=== PATIENT | female | born 1935 | race Caucasian/White ===

== ENCOUNTER 2018-04-28 05:14 | Observation (INO) | payer MEDICARE, OTHER ==
[2018-04-18 12:14] LABS: BASOPHILS # (AUTO) 0.1 (0.0-0.1); BASOPHILS % 0.8 % (0.0-1.0); EOSINOPHILS # (AUTO) 0.2 (0.0-0.4); HEMATOCRIT 41.4 % (34.2-44.1); HEMOGLOBIN 13.7 g/dL (12.0-16.0); MEAN CORPUSCULAR HEMOGLOBIN 27.7 pg (28-32); MEAN CORPUSCULAR HGB CONC 33.1 g/dL (31-35); MEAN CORPUSCULAR VOLUME 83.8 fL (81-99); MONOCYTES # (AUTO) 0.6 (0.2-0.8); MONOCYTES % 6.1 % (4.4-11.3); NEUTROPHILS # (AUTO) 6.3 (2.1-6.9); NEUTROPHILS % 68.7 % (38.7-80.0); PLATELET COUNT 242 x10e3/uL (140-360); RED BLOOD COUNT 4.94 x10e6/uL (3.6-5.1); RED CELL DISTRIBUTION WIDTH 13.3 % (11.7-14.4)
[2018-04-18 12:27] LABS: ANION GAP 14.3 mmol/L (8-16); BLOOD UREA NITROGEN 26 mg/dL (7-26); BUN/CREATININE RATIO 33 (6-25); CALCIUM 10.1 mg/dL (8.4-10.2); CARBON DIOXIDE 25 mmol/L (22-29); CHLORIDE 104 mmol/L (98-107); CREATININE, SERUM 0.78 mg/dL (0.57-1.11); EST GLOMERULAR FILTRATION RATE > 60 ML/MIN (60-); GLUCOSE 119 mg/dL (74-118); POTASSIUM 4.3 mmol/L (3.5-5.1); SODIUM 139 mmol/L (136-145)
--- NOTE | 2018-04-18 12:36 | Diagnostic Imaging Report ---
PROCEDURE: X-RAY CHEST, TWO VIEWS COMPARISON: None. INDICATIONS: PRE OPERATIVE CHEST X-RAY FOR LEFT BREAST MASTECTOMY FINDINGS: The lungs are hyperinflated. The patient is rotated to the right. No focal airspace consolidation, pleural effusion, or pneumothorax. Tortuosity and atherosclerotic calcification of the thoracic aorta with an otherwise normal heart size. No pulmonary edema. No acute osseous abnormalities. 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 Surgical clips project over the upper abdomen on the lateral radiograph, likely related to cholecystectomy. CONCLUSION: No acute cardiopulmonary abnormality. Pulmonary hyperinflation suggestive of COPD. Dictated by: Robert Olmedo M.D. on 04/18/2018 at 12:40 Electronically approved by: Robert Olmedo M.D. on 04/18/2018 at 12:40
[~2018-04-28] VITALS: Ht 172.7 cm; Wt 72.6 kg
[~2018-04-28 05:14] MED LIST: AMLODIPINE BESYL5 MG PO; ATENOLOL50 MG PO; BERBERINE PO; DORZOLAMIDE-TIM10 ML OP; MULTIVITAMINS1 EAC7 PO; ULTRAM50 MG PO; [UNRECOGNIZED DRUG - OTHER] PO
[2018-04-28] MEDS ORDERED: HYDROMORPHONE 1MG/1ML INJ IV PRN (10:00)
[2018-04-28] MEDS ORDERED: ACETAMINOPHEN 1000 MG/100 ML IV PRN (10:00)
[2018-04-28] MEDS ORDERED: SODIUM CHLORIDE 0.9% 1000ML 1,000 ML ONE (11:16)
[2018-04-28 11:36] VITALS: BP 160/76
[2018-04-28] MEDS: SODIUM CHLORIDE 0.9% 1000ML 1,000 ML IV SCH (11:52)
[2018-04-28 12:05] VITALS: BP 160/76
--- NOTE | 2018-04-28 12:44 | Operative Report ---
DATE OF PROCEDURE: April 28, 2018 PREOPERATIVE DIAGNOSIS: Left breast cancer. POSTOPERATIVE DIAGNOSIS: Left breast cancer. OPERATION PERFORMED: Left total mastectomy. WORSHIP DIRECTOR: JOSH Braga ANESTHESIA: General. COMPLICATIONS: None. ESTIMATED BLOOD LOSS: Minimal. DESCRIPTION OF PROCEDURE: With the patient lying in bed in the supine position, under good general anesthesia, the left chest and breast were prepped with Betadine solution and draped in the usual manner. An elliptical incision was made to include the nipple-areolar complex. Then flaps were developed in all directions. The borders of the flap were medially the sternum, superiorly the clavicle, inferiorly the rectus muscle and laterally the latissimus. The breast tissue was then taken off of the pectoralis major muscle, and hemostasis was ascertained. The lateral border of the pectoralis major was then , and the breast was totally taken off the chest wall without any difficulty, properly marked and sent for pathology. The whole area was thoroughly irrigated. Perfect hemostasis was ascertained. The 10 flat Kerwin-White drain was then placed into the wound and brought out through separate stab wound incision and sutured to the skin with 2-0 silk. The wound was then closed with interrupted vertical mattress sutures of 2-0 and 3-0 silk. A dressing was applied. The sponge, lap and needle count was correct. Patient tolerated the procedure well and returned to the recovery room in stable condition. Job#: [id number]
[2018-04-28 15:49] VITALS: BP 135/66
[2018-04-28] MEDS: HYDROCODONE/APAP 7.5MG-325MG 1 EA TAB PO PRN ×2 (15:52→22:31)
[2018-04-28] MEDS ORDERED: DEXAMETHASONE SOD PHOS INJ 4 MG/ML VIAL ONE (17:18)
[2018-04-28] MEDS ORDERED: ONDANSETRON HCL INJ 2 MG/ML VIAL ONE (17:18)
[2018-04-28] MEDS ORDERED: PROPOFOL IV EMULSION 10 MG/ML 20 ML VIAL ONE (17:18)
[2018-04-28] MEDS ORDERED: LIDOCAINE HCL 2% LOCAL INJ 5 ML SDV VIAL INJ ONE (17:18)
[2018-04-28] MEDS ORDERED: SEVOFLURANE INHAL SOLN 250 ML PEN BTL ONE (17:18)
[2018-04-28] MEDS: DORZOLAMIDE/TIMOLOL (OPTH SOL) 10 ML DRPETTE OP SCH (17:49)
[2018-04-28] MEDS ORDERED: FENTANYL CITRATE/PF 100MCG/2 ML INJ ONE (18:01)
[2018-04-28 20:00] VITALS: BP 138/64
[2018-04-29] VITALS: BP 130/59
[2018-04-29] MEDS: SODIUM CHLORIDE 0.9% 1000ML 1,000 ML IV SCH ×2 (00:54→12:22)
[2018-04-29 04:00] VITALS: BP 152/70
[2018-04-29 08:34] VITALS: BP 137/68
[2018-04-29] MEDS ORDERED: AMLODIPINE BESYLATE 5 MG TAB PO SCH (09:00)
[2018-04-29] MEDS: DORZOLAMIDE/TIMOLOL (OPTH SOL) 10 ML DRPETTE OP SCH (09:00)
[2018-04-29] MEDS ORDERED: ATENOLOL 50 MG TAB PO SCH (09:00)
[2018-04-29 12:25] VITALS: BP 129/65
== END 2018-04-29 16:02 | disposition home or self-care (01) ==
LOC: OR 05:14 → PACU V 10:00 → IMCU 11:27
PROVIDERS: ADMIT Surgery; ATTEND Surgery
DX: D05.12 Intraductal carcinoma in situ of left breast (principal); I10 Essential (primary) hypertension; G89.29 Other chronic pain; E11.9 Type 2 diabetes mellitus without complications
CPT/HCPCS: 19303; 36415; 71046; 80048; 85025; 88307; 93005; G0378 ×2; J1100; J2001; J2405; J7030 ×2; 88309

== ENCOUNTER 2020-03-21 01:50 | Emergency (ER) | payer MEDICARE, OTHER ==
[~2020-03-21] VITALS: Ht 172.7 cm; Wt 72.6 kg
[~2020-03-21 01:50] MED LIST changes: +LIPITOR10 MG PO; +NIFEDIPINE ER30 M1 PO
[2020-03-21] MEDS ORDERED: SODIUM CHLORIDE 0.9% 1000ML 1,000 ML IV STA (01:52)
--- OUTSIDE RECORDS SUMMARY | 2020-03-21 01:53 | XMS REPORT | Continuity of Care Document ---
Author Author Miguelito Vinh wali ANTELMO Alan [employer] Address Unknown Phone Unavailable Care Team Providers Care Stable Hand Name Role Phone [employer] Unavailable Un available Problems Problem Status Onset Date Classification Date Reported Comments Source Laceration without foreign body of other part of head, subsequent encounter 09/06/2018 03/21/2019 [facility] Pain in right wrist 09/01/2018 03/21/2019 [facility] Pain in unspecified wrist 09/01/2018 03/21/2019 [facility] Encounter for removal of sutures 09/01/2018 03/21/2019 [facility] Pain in right hand 09/01/2018 03/21/2019 [facility] STITCH REMOVAL Active 09/01/2018 [facility] FALL Active 08/25/2018 [facility] Laceration without foreign body of scalp , initial encounter 08/25/2018 03/14/2019 [facility] Unspecified fall, initial encounter 08/25/2018 03/14/2019 [facility] Laceration without foreign body of other part of head, initial encounter 08/25/2018 03/14/2019 [facility] DEFICIENCY, VITAMIN D NOS Acti ve 03/29/2015 Condition 04/[facility] HTN, BENIGN Active 03/29/2015 Condition 04/18/2015 [facility] Benign hypertension (disorder) Active 03/29/2015 Problem 03/21/2019 Data migrated from [employer] on . [facility] Vitamin D deficiency (disorder) Active 03/29/2015 Problem 03/21/2019 Data migrated from [employer] on . [facility] THYROID CYST Active 03/29/2015 [facility] ACUTE MAXILLARY SINUSITIS Acti ve 05/31/2010 Condition 04/18/2015 [facility] Cough (finding) Active 05/31/2010 Problem 03/21/2019 Data migrated from [employer] on . Data migrated from [employer] on 04/27/15. Data migrated from [employer] on 03/22/15. Data migrated from [employer] on 03/22/15. [facility] Acute maxillary sinusitis (disorder) Active 05/31/2010 Problem 03/21/2019 Data migrated from [employer] on . [facility] INCONTINENCE, URGE Active 05/15/2010 Condition 04/18/2015 [facility] NEED PROPH VACCINATION AGAINST STREP PNEUMONE Active 05/15/2010 Condition 04/18/2015 [facility] Urge incontinence of urine (finding) Active 05/15/2010 Problem 03/21/2019 Data migrated from [employer] on . Data migrated from [employer] on 03/22/15. Data migrated from [employer] on 03/22/15. [facility] PNEUMONIA Active 01/20/2010 Condition 04/18/2015 [facility] Pneumonia (disorder) Active 01/20/2010 Problem 03/21/2019 Data migrated from [employer] on . [facility] OTHER SCREENING MAMMOGRAM Acti ve 01/16/2010 Condition 04/18/2015 [facility] SPECIAL SCREENING FOR MALIGNANT NEOPLASMS COLON Active 01/16/2010 Condition 04/18/2015 [facility] MYALGIA Active 01/16/2010 Condition 04/18/2015 [facility] FEVER PRESENTING CONDITIONS CLASSIFIED ELSEWHERE Active 01/16/2010 Condition 04/18/2015 [facility] COUGH Active 01/16/2010 Condition 04/18/2015 [facility] BACK PAIN Active 01/16/2010 Condition 04/18/2015 [facility] Fever (finding) Active 01/16/2010 Problem 03/21/2019 Data migrated from [employer] on . Data migrated from [employer] on 03/22/15. [facility] Muscle pain (finding) Active 01/16/2010 Problem 03/21/2019 Data migrated from [employer] on . Data migrated from [employer] on 03/22/15. Data migrated from [employer] on 03/22/15. [facility] Backache (finding) Active 01/16/2010 Problem 03/21/2019 Data migrated from [employer] on . [facility] Screening mammography (procedure) Active 01/16/2010 Problem 03/21/2019 Data migrated from [employer] on . [facility] THYROID CYST Active 03/30/2009 Condition 04/18/2015 [facility] Cyst of thyroid (disorder) Act elizabeth 03/30/2009 Problem 03/21/2019 Data migrated from [employer] on . Data migrated from [employer] on 03/22/15. Data migrated from [employer] on 03/22/15. [facility] ABDOMINAL PAIN Inactive 11/10/2008 Condition 04/18/2015 [facility] URI Inactive 11/10/2008 Condition 04/18/2015 [facility] SINUSITIS, ACUTE Inactive 11/10/2008 Condition 04/18/2015 [facility] PHARYNGITIS Inactive 11/10/2008 Condition 04/18/2015 [facility] LARYNGITIS ACUTE Inactive 11/10/2008 Condition 04/18/2015 [facility] GLAUCOMA Active 11/10/2008 Condition 04/18/2015 [facility] ALLERGIC RHINITIS Active 11/10/2008 Condition 04/18/2015 [facility] IMPAIRED FASTING GLUCOSE Active 11/10/2008 Condition 04/18/2015 [facility] CAD Active 0 11/10/2008 Condition 04/18/2015 [facility] KNEE PAIN Active 11/10/2008 Condition 04/18/2015 [facility] Allergic rhinitis (disorder) A ctive 11/10/2008 Problem 03/21/2019 Data migrated from [employer] on . Data migrated from [employer] on 03/22/15. Data migrated from [employer] on 03/22/15. [facility] Coronary arteriosclerosis (disorder) Active 11/10/2008 Problem 03/21/2019 Data migrated from [employer] on . Data migrated from [employer] on 03/22/15. Data migrated from [employer] on 03/22/15. [facility] Glaucoma (disorder) Active 11/10/2008 Problem 03/21/2019 Data migrated from [employer] on . Data migrated from [employer] on 03/22/15. Data migrated from [employer] on 03/22/15. [facility] Impaired fasting glycaemia (disorder) Active 11/10/2008 Problem 03/21/2019 Data migrated from [employer] on . Data migrated from [employer] on 03/22/15. Data migrated from [employer] on 03/22/15. [facility] Knee pain (finding) Active 11/10/2008 Problem 03/21/2019 Data migrated from [employer] on . Data migrated from [employer] on 03/22/15. Data migrated from [employer] on 03/22/15. [facility] GERD Active 11/09/2008 Condition 04/18/2015 [facility] URINARY INCONTINENCE Active 11/09/2008 Condition 04/18/2015 [facility] BRONCHITIS Active 11/09/2008 Condition 04/18/2015 [facility] Gastroesophageal reflux disease (disorder) Active 11/09/2008 Problem 03/21/2019 Data migrated from [employer] on 04/27/15. Data migrated from [employer] on 03/22/15. Data migrated from [employer] on 03/22/15. [facility] Urinary incontinence (finding) Active 11/09/2008 Problem 03/21/2019 Data migrated from [employer] on . Data migrated from [employer] on 03/22/15. Data migrated from [employer] on 03/22/15. [facility] Acute laryngitis (disorder) Re solved 11/09/2008 Problem 03/21/2019 Data migrated from [employer] on 05/07. [facility] Acute sinusitis (disorder) Res olved 11/09/2008 Problem 03/21/2019 Data migrated from [employer] on 05/06. [facility] Bronchitis (disorder) Active 11/09/2008 Problem 03/21/2019 Data migrated from [employer] on . [facility] Pharyngitis (disorder) Resolved 11/09/2008 Problem 03/21/2019 Data migrated from [employer] on 05/06. [facility] Upper respiratory infection (disorder) Resolved 11/09/2008 Problem 03/21/2019 Data migrated from [employer] on 05/06/15. [facility] FH DIABETES - DM Active Condition 04/18/2015 [facility] FH STROKE Active Condition 04/18/2015 [facility] FH HEART DISEASE Active Condition 04/18/2015 [facility] Unspecified fall, subsequent encounter 03/21/2019 [facility] Other specified soft tissue disorders 03/21/2019 [facility] Essential (primary) hypertension 03/21/2019 [facility] Atherosclerotic heart disease of [place] coronary artery without angina pectoris 03/21/2019 [facility] Family history of stroke (context-dependent category) Active Problem 03/21/2019 Data migrated from [employer] on 04/27/15. [facility] Family history: Cardiac disorder (contex t-dependent category) Active Prob lacey 03/21/2019 Data migrated from [employer] on 04/27/15. [facility] Fall (on) (from) other stairs and steps, initial encounter 03/14/2019 [facility] Malignant neoplasm of unspecified site o f unspecified female breast 03/14/2019 [facility] Allergy status to other drugs, medicamen ts and biological substances status 03/14/2019 [facility] Allergy status to other antibiotic agents status 03/14/2019 [facility] Allergy status to analgesic agent status 03/14/2019 [facility] Encounter for immunization 03/14/2019 [facility] OCL CRTD ART WO INFRCT Active [facility] Medications Medication Details Route Status Patient Instructions Ordering Provider Order Date Source Sulfamethoxazole 800 MG / Trimethoprim 1 60 MG Oral Tablet [Bactrim] 1 tab, PO, BID, X 7 day, # 14 tab, 0 Ref ill(s) No Longer Active 08/26/2018 [facility] COSOPT PF SOLN one drop in eac h eye twice daily Active 03/29/2015 [facility] TRAMADOL HCL 50 MG TABS one to two tab s by mouth twice daily Active 03/29/2015 [facility] TRAMADOL HCL 50 MG TABS one to two tab s by mouth twice daily Active 03/29/2015 [facility] AVELOX 400 MG TABS one daily f or sinus infection No Longer Active 05/31/2010 [facility] PROMETHAZINE-DM 6.25-15 MG/5ML SYRP one teaspoon every 4-6 hours and 2 teaspoons HS for cough/ congestion No Longer Active 05/31/2010 [facility] SINGULAIR 10 MG TABS daily No Longer Active 05/31/2010 [facility] CLARINEX 5 MG TABS daliy No Longer Active 05/31/2010 [facility] PROMETHAZINE-DM 6.25-15 MG/5ML SYRP 2 teaspoons HS prn cough Inactive 05/15/2010 [facility] BACTRIM DS 800-160 MG TABS one BID x 7 days (to begin Saturday01/23/2010) Inactive 05/15/2010 [facility] LEVAQUIN 750 MG TABS 1 po janeen y x 7 days. Inactive 05/15/2010 [facility] ASTEPRO 137 MCG/SPRAY SOLN 2 s pn BID Inactive 05/15/2010 [facility] TRAVATAN SOLN 1 drop each eye daily (per Manager Technical Support) No Longer Active 11/10/2008 [facility] ATENOLOL TAB 25MG 1/2 tab by m outh daily Active 11/09/2008 [facility] ATENOLOL TAB 25MG 1/2 tab by m outh daily Active 11/09/2008 [facility] Allergies, Adverse Reactions, Alerts Substance Category Reaction Severity Reaction type Status Date Reported Comments Source BIAXIN Drug allergy BIAXIN 11/09/2008 [facility] clarithromycin<sup>1</sup> Ass ertion Drug aller gy Active 11/09/2008 1Data migrated from [employer] on 02/15/15. Originally documented as BIAXIN. [facility] clarithromycin<sup>2</sup> Ass ertion Drug aller gy Active 11/09/2008 Data migrated from [employer] on 02/15/15. Originally documented as BIAXIN. [facility] BROMDAY Drug allergy BROMDAY 03/29/2015 [facility] IBUPROFEN Drug allergy IBUPROFEN 03/29/2015 [facility] EPHEDRINE Drug allergy EPHEDRINE 03/29/2015 [facility] ibuprofen<sup>1</sup> Assertion Drug allergy Active 03/29/2015 Data migrated from [employer] on04/28/15. Originally documented as IBUPROFEN. [facility] ePHEDrine<sup>3</sup> Assertion Drug allergy Active 03/29/2015 Data migrated from [employer] on04/28/15. Originally documented as EPHEDRINE. [facility] Biaxin Assertion Drug allergy Active [facility] decongestants Assertion Drug allergy Active [facility] Immunizations Immunization Date Given Site Status Last Updated Comments Source diphtheria/pertussis, acel/tetanus adult 08/25/2018 Left Deltoid completed [facility] pneumococcal immunization administered 05/15/2010 completed [facility] pneumococcal 23-valent vaccine<sup>1</sup> 05/15/2010 Right Deltoid completed Result Comment: pneumovax. Migrated from OBS ; Data migrated from [employer] on 11/28/2015. [facility] Results Order Name Results Value Reference Range Date Interpretation Comments Source CARDIAC ENZYMES Troponin-I <0.02 0.00 - 0.40 08/25/2018 [facility] CARDIAC ENZYMES Total CK 114 12 - 191 08/25/2018 [facility] CHEM PANEL A/G Ratio 1.1 0.7 - 1.6 08/25/2018 [facility] CHEM PANEL Globulin 3.0 2.7 - 4.2 08/25/2018 [facility] CHEM PANEL B/C Ratio 29 6 - 25 08/25/2018 [facility] CHEM PANEL AGAP 10.6 10.0 - 20.0 08/25/2018 [facility] CHEM PANEL eGFR 56 08/25/2018 Result Comment: The eGFR is calculated using the CKD-EPI formula. In most young, healthy individuals the eGFR will be >90 mL/min/1.73m2. The eGFR declines with age. An eGFR of 60-89 may be normal in some populations, particularly the elderly, for whom the CKD-EPI formula has not been extensively validated. Use of the eGFR is not recommended in the following populations:

Individuals with unstable creatinine concentrations, including patients and those with serious co-morbid conditions.

Patients with extremes in muscle mass or diet.

The data above are obtained from the National Kidney Disease Education Program (NKDEP) which additionally recommends that when the eGFR is used in patients with extremes of body mass index for purposes of drug dosing, the eGFR should be multiplied by the estimated BMI. [facility] CHEM PANEL Bili Total 0.3 0.2 - 1.3 08/25/2018 [facility] CHEM PANEL Alk Phos 81 39 - 136 08/25/2018 [facility] CHEM PANEL AST 17 0 - 37 08/25/2018 [facility] CHEM PANEL Sodium Lvl 141 135 - 145 08/25/2018 [facility] CHEM PANEL Creatinine Lvl 0.96 0.50 - 1.40 08/25/2018 [facility] CHEM PANEL Potassium Lvl 3.6 3.5 - 5.1 08/25/2018 [facility] CHEM PANEL Glucose Lvl 165 70 - 99 08/25/2018 [facility] CHEM PANEL Calcium Lvl 8.9 8.5 - 10.5 08/25/2018 [facility] CHEM PANEL Chloride Lvl 106 95 - 109 08/25/2018 [facility] CHEM PANEL CO2 28 24 - 32 08/25/2018 [facility] CHEM PANEL Albumin Lvl 3.3 3.5 - 5.0 08/25/2018 [facility] CHEM PANEL ALT 27 0 - 65 08/25/2018 [facility] CHEM PANEL Total Protein 6.3 6.4 - 8.4 08/25/2018 [facility] CHEM PANEL BUN 28 7 - 22 08/25/2018 [facility] HEMATOLOGY PTT 30.8 22.9 - 35.8 08/25/2018 [facility] HEMATOLOGY RDW 14.2 11.5 - 14.5 08/25/2018 [facility] HEMATOLOGY MCHC 33.7 32.0 - 36.0 08/25/2018 [facility] HEMATOLOGY MPV 8.9 7.4 - 10.4 08/25/2018 [facility] HEMATOLOGY Platelet 198 133 - 450 08/25/2018 [facility] HEMATOLOGY MCH 27.5 27.0 - 31.0 08/25/2018 [facility] HEMATOLOGY MCV 81.4 80.0 - 98.0 08/25/2018 [facility] HEMATOLOGY Hct 39.3 36.0 - 48.0 08/25/2018 [facility] HEMATOLOGY Hgb 13.2 12.0 - 16.0 08/25/2018 [facility] HEMATOLOGY RBC 4.82 4.20 - 5.40 08/25/2018 [facility] HEMATOLOGY WBC 9.5 3.7 - 10.4 08/25/2018 [facility] HEMATOLOGY PT 14.0 12.0 - 14.7 08/25/2018 [facility] HEMATOLOGY INR 1.08 0.85 - 1.17 08/25/2018 [facility] HEMATOLOGY Neutrophils # 7.4 1.5 - 8.1 08/25/2018 [facility] HEMATOLOGY Lymphocytes # 1.3 1.0 - 5.5 08/25/2018 [facility] HEMATOLOGY Monocytes # 0.6 0.0 - 0.8 08/25/2018 [facility] HEMATOLOGY Eosinophils # 0.1 0.0 - 0.5 08/25/2018 [facility] HEMATOLOGY Basophils # 0.1 0.0 - 0.2 08/25/2018 [facility] HEMATOLOGY Basophils 0.8 0.0 - 1.0 08/25/2018 [facility] HEMATOLOGY Monocytes 6.3 2.0 - 12.0 08/25/2018 [facility] HEMATOLOGY Lymphocytes 14.2 20.0 - 40.0 08/25/2018 [facility] HEMATOLOGY Segs 77.8 45.0 - 75.0 08/25/2018 [facility] HEMATOLOGY Eosinophils 1.0 0.0 - 4.0 08/25/2018 [facility] Chemistry HGBA1C 6.4 - 5.6 03/30/2015 [facility] Chemistry CHOLESTEROL 181 - 199 03/30/2015 [facility] Chemistry TRIGLYCERIDE 103 - 149 03/30/2015 [facility] Chemistry HDL 52 >=61 03/30/2015 [facility] Chemistry LDL 108 - 99 03/30/2015 [facility] Chemistry SODIUM 144 MEQ/L 135 - 145 03/30/2015 [facility] Chemistry POTASSIUM 4.3 MEQ/L 3.5 - 5.1 03/30/2015 [facility] Chemistry CREATININE 0.8 0.5 - 1.4 03/30/2015 [facility] Chemistry BUN 22 7 - 22 03/30/2015 [facility] Chemistry BUN/CREAT 28 6 - 25 03/30/2015 [facility] Chemistry ALBUMIN 3.5 3.5 - 5.0 03/30/2015 [facility] Chemistry CALCIUM 9.4 8.5 - 10.5 03/30/2015 [facility] Chemistry SGPT (ALT) 27 0 - 65 03/30/2015 [facility] Chemistry SGOT (AST) 13 0 - 37 03/30/2015 [facility] Chemistry ALK PHOS 91 39 - 136 03/30/2015 [facility] Chemistry TSH 1.970 0.360 - 3.740 03/30/2015 [facility] Chemistry HGBA1C 5.7 05/15/2010 [facility] CHOLESTEROL 210 120 - 200 05/15/2010 [facility] Chemistry TRIGLYCERIDE 96 0 - 200 05/15/2010 [facility] Chemistry HDL 50 >=35 05/15/2010 [facility] Chemistry LDL 181 0 - 129 05/15/2010 [facility] Chemistry TSH 1.970 0.360 - 3.740 05/15/2010 [facility] Chemistry SODIUM 140 135 - 145 05/15/2010 [facility] Chemistry POTASSIUM 5.4 3.5 - 5.1 05/15/2010 [facility] Chemistry BUN 25 7 - 22 05/15/2010 [facility] Chemistry CREATININE 0.9 0.5 - 1.4 05/15/2010 [facility] Chemistry BUN/CREAT 28 6 - 25 05/15/2010 [facility] Chemistry ALBUMIN 3.7 3.5 - 5.0 05/15/2010 [facility] Chemistry CALCIUM 9.8 8.5 - 10.5 05/15/2010 [facility] Chemistry SGOT (AST) 10 0 - 37 05/15/2010 [facility] Chemistry SGPT (ALT) 28 0 - 65 05/15/2010 [facility] Chemistry ALK PHOS 99 39 - 136 05/15/2010 [facility] Chemistry HGBA1C 5.7 05/15/2010 [facility] Chemistry CHOLESTEROL 210 120 - 200 05/15/2010 [facility] Chemistry TRIGLYCERIDE 96 0 - 200 05/15/2010 [facility] Chemistry HDL 50 >=35 05/15/2010 [facility] Chemistry LDL 141 0 - 129 05/15/2010 [facility] Chemistry TSH 1.970 0.360 - 3.740 05/15/2010 [facility] Chemistry SODIUM 140 135 - 145 05/15/2010 [facility] Chemistry POTASSIUM 5.4 3.5 - 5.1 05/15/2010 [facility] Chemistry BUN 25 7 - 22 05/15/2010 [facility] Chemistry CREATININE 0.9 0.5 - 1.4 05/15/2010 [facility] Chemistry BUN/CREAT 28 6 - 25 05/15/2010 [facility] Chemistry ALBUMIN 3.7 3.5 - 5.0 05/15/2010 [facility] Chemistry CALCIUM 9.8 8.5 - 10.5 05/15/2010 [facility] Chemistry SGOT (AST) 10 0 - 37 05/15/2010 [facility] Chemistry SGPT (ALT) 28 0 - 65 05/15/2010 [facility] Chemistry ALK PHOS 99 39 - 136 05/15/2010 [facility] Hematology HGB 14.1 12.0 - 16.0 05/15/2010 [facility] Hematology HCT 42.3 36.0 - 48.0 05/15/2010 [facility] Hematology PLATELETS 189 K/CMM 133 - 450 05/15/2010 [facility] Hematology HGB 14.1 12.0 - 16.0 05/15/2010 [facility] Hematology HCT 42.3 36.0 - 48.0 05/15/2010 [facility] Hematology PLATELETS 189 K/CMM 133 - 450 05/15/2010 [facility] Urinalysis UA COLOR Yellow Yellow 05/15/2010 [facility] Urinalysis UA COLOR Yellow Yellow 05/15/2010 [facility] Chemistry HGBA1C 5.8 % OF TOTAL HGB 11/13/2008 [facility] Chemistry BUN 19 7 - 25 11/11/2008 [facility] Chemistry CREATININE 0.79 0.50 - 1.20 11/11/2008 [facility] Chemistry BUN/CREAT NOT AP PLICABLE (calc) 6 - 22 11/11/2008 [facility] Chemistry SODIUM 141 135 - 146 11/11/2008 [facility] Chemistry POTASSIUM 4.4 3.5 - 5.3 11/11/2008 [facility] Chemistry CALCIUM 9.8 8.6 - 10.2 11/11/2008 [facility] Chemistry ALBUMIN 4.2 3.6 - 5.1 11/11/2008 [facility] Chemistry ALK PHOS 72 33 - 130 11/11/2008 [facility] Chemistry SGOT (AST) 17 10 - 35 11/11/2008 [facility] Chemistry SGPT (ALT) 21 6 - 40 11/11/2008 [facility] Pathology Reports No Data Provided for This Section Diagnostic Reports Report Value Date Source Wrist complete DX Wrist comple te DX Clinical Indication: - pain and swelling post fall 7d ago; ; Age: 82 years /o Female Comparison: None TECHNIQUE: PA, lateral and oblique radiographs of the right wrist. FINDINGS: No displaced fracture identified. Advanced osteoarthropathy of the articulation of the scaphoid with the adjacent trapezium and trapezoid bones. Some fragmentation of bone in the region of the triangular fibrocartilage is unassociated with any acute injury and may be related to degenerative change or prior trauma. There is also some widening of the scapholunate space which measures approximately 3 mm in width. This finding is suspicious for injury of the scapholunate ligament. No soft tissue abnormality is identified. IMPRESSION: No displaced fracture identified. Possible scapholunate ligament injury. Degenerative osteoarthropathy is noted. 09/01/2018 [facility] Hand 3 views DX Right Hand 3 v iews DX Age: 82 years /o Female Clinical Indication: - pain and swelling post fall 7d ago; Comparison: None TECHNIQUE: PA, lateral and oblique radiographs for right hand exam. (3 views) FINDINGS: No acute fracture or malalignment is identified. Moderately advanced osteoarthropathy involving the MCP joints--most severe at the second MCP joint followed by a third in the first CMC joint. Milder osteoarthropathy of the interphalangeal joints of all fingers. Calcifications associated with the triangular fibrocartilage. Advanced osteoarthropathy at the articulation of the trapezium and trapezoid bones with the distal scaphoid. No soft tissue abnormality is identified. IMPRESSION: Arthritic changes in the hand including the MCP joints, the first CMC joint and the articulations of the scaphoid bone with the adjacent trapezium and trapezoid as described. SL: [id number] 09/01/2018 [facility] Shoulder series DX 3 VIEW RIGH T SHOULDER HISTORY: And shoulder pain after falling. COMPARISON: No priors available. Moderate arthritic change at the glenohumeral joint and significant narrowing of the subacromial space. Arthritic changes in the acromioclavicular joint. The bony structures are intact without fracture or dislocation. Upper right lung clear. IMPRESSION: Arthritic changes glenohumeral joint and acromioclavicular joint. Subacromial space narrowing raises concern for impingement. END REPORT SL: [id number] 08/25/2018 [facility] Chest 1view DX CHEST 1 VIEW INDICATION: Patient fell. COMPARISON: 01/26/2010 chest x-ray. FINDINGS: The lungs are clear. The pleura, cardiomediastinal silhouette and bony thorax are normal. IMPRESSION: Negative. END IMPRESSION SL: [id number] 08/25/2018 [facility] Brain wo contrast CT Clinical Indication: - fall Comparison: None TECHNIQUE: CT images were obtained from the foramen magnum to the vertex without the use of intravenous contrast on a multidetector CT. Coronal and sagittal reconstructions were obtained. CT imaging performed at this location utilizes radiation dose optimization techniques which include one or more of the following: -Automated exposure control -Adjustment of the mA and/or kV accordin g to patient size -Use of iterative reconstruction [employer]ight [employer] ue CT Radiation Dose DLP 937 mGy-cm FINDINGS: BRAIN PARENCHYMA: There are normal garcia-white interfaces, sulci, and gyri. There are no focal mass lesions on this noncontrast head CT. There is no mass effect, midline shift or edema. There are no intra-axial or extra-axial fluid collections, intraventricular or intraparenchymal hemorrhage. The pineal, sellar, brainstem, cerebellum and skull base regions appear unremarkable. VENTRICLES: The lateral ventricles, third and fourth ventricles appear unremarkable for age. The basilar cisterns are normal. ORBITS, MASTOIDS AND PARANASAL SINUSES: Status post bilateral lens replacement. The visualized orbits and paranasal sinuses are unremarkable. The mastoid air cells are clear. SKULL: There are no osseous abnormalities. If there is further concern for intracranial pathology or acute stroke, MRI of the brain may be performed for complete assessment. IMPRESSION: No acute intracranial abnormalities. ----- SL: CSMMICHELLEM 08/25/2018 [facility] Spine cervical wo contrast CT Patient Name: ANTELMO PAGAN. : 1935; Age: 82 years y/o; Female. MR: [id number]. Ordering Physician: Jonathan Michelle MD. CT CERVICAL SPINE WITHOUT CONTRAST. HISTORY: Fall and neck pain. COMPARISON: None. FINDINGS: Computed tomography of the cervical spine was performed utilizing contiguous transaxial sections without the administration of intravenous or myelographic contrast. Coronal and sagittal reformatted images were obtained. CT imaging was performed with exposure control parameters to reduce radiation dose. Total DLP: 158 mGy-cm The cervicovertebral bodies are normal in height without evidence of fracture. Degenerative grade 1 anterolisthesis noted at C2-3. Partially imaged levoscoliosis of cervicothoracic spine noted. Diffuse degenerative changes of cervical spine noted causing varying degrees of multilevel central canal and neural foraminal stenosis. The prevertebral soft tissue is unremarkable. Partially imaged lung apices are unremarkable. IMPRESSION: 1. No evidence of cervical spine fractur e. 2. Degenerative grade 1 anterolisthesis at C2-3. Partially imaged levoscoliosis of cervicothoracic spine. Diffuse degenerative changes noted. SL: [id number] 08/25/2018 [facility] Thyroid US Thyroid US - Mar 31, 2015 10:48:00 AM . CLINICAL INDICATION: See Clinic Indication ; thyroid cyst COMPARISON: Thyroid ultrasound March 2009 TECHNIQUE: Grayscale and Doppler ultrasound of the neck was obtained in the area of the thyroid. FINDINGS: Right lobe is 4.8 x 1.6 x 2.2 cm. Left lobe is 4.5 x 1.7 x 1.5 cm. Isthmus is 0.3 cm. Few scattered heterogeneously hypoechoic nodules are present throughout thyroid gland, with largest the right measuring 0.9 cm on the largest left measuring 0.8 cm. No lymphadenopathy was identified IMPRESSION: Few scattered bilateral heterogeneously hypoechoic subcentimeter nodules. Reference: Radiology. 2005 237:794-800. Management of thyroid nodules detected at US: Society of Radiologists in Ultrasound Consensus Conference Statement. Lui MC, Neeraj CB, Keaton JW, et. al. SL: 14 03/31/2015 [facility] Consultation Notes No Data Provided for This Section Discharge Summaries No Data Provided for This Section History and Physicals No Data Provided for This Section Vital Signs Vital Sign Value Date Comments Source Temperature Oral (F) 98.5 F 09/01/2018 [facility] Heart Rate 68 09/01/2018 [facility] Respitory Rate 18 09/01/2018 [facility] Systolic (mm Hg) 139 09/01/2018 [facility] Diastolic (mm Hg) 74 09/01/2018 [facility] Heart Rate 68 09/01/2018 [facility] Systolic (mm Hg) 125 09/01/2018 [facility] Diastolic (mm Hg) 77 09/01/2018 [facility] Respitory Rate 18 09/01/2018 [facility] Height 172.72 cm 09/01/2018 [facility] BMI Calculated 24.38 09/01/2018 [facility] Weight 72.727 09/01/2018 [facility] Respitory Rate 18 09/01/2018 [facility] Temperature Oral (F) 98.7 F 09/01/2018 [facility] Systolic (mm Hg) 171 09/01/2018 [facility] Diastolic (mm Hg) 83 09/01/2018 [facility] Heart Rate 71 09/01/2018 [facility] Heart Rate 87 08/26/2018 [facility] Respitory Rate 18 08/26/2018 [facility] Systolic (mm Hg) 153 08/26/2018 [facility] Diastolic (mm Hg) 75 08/26/2018 [facility] Respitory Rate 18 08/25/2018 [facility] Heart Rate 89 08/25/2018 [facility] Systolic (mm Hg) 166 08/25/2018 [facility] Diastolic (mm Hg) 75 08/25/2018 [facility] Heart Rate 87 08/25/2018 [facility] Respitory Rate 18 08/25/2018 [facility] Systolic (mm Hg) 150 08/25/2018 [facility] Diastolic (mm Hg) 75 08/25/2018 [facility] Temperature Oral (F) 98.4 F 08/25/2018 [facility] Weight 72.727 08/25/2018 [facility] Height 175.26 cm 08/25/2018 [facility] BMI Calculated 23.68 08/25/2018 [facility] Height 68 0 04/18/2015 [facility] Weight 192 04/18/[facility] Systolic (mm Hg) 164 04/18/2015 [facility] Diastolic (mm Hg) 78 04/18/2015 [facility] Heart Rate 64 04/18/2015 [facility] Temperature Oral (F) 97.4 F 04/18/2015 [facility] Height 68 0 03/29/2015 [facility] Weight 196 03/29/2015 [facility] Temperature Oral (F) 97.2 F 03/29/2015 [facility] Systolic (mm Hg) 166 03/29/2015 [facility] Diastolic (mm Hg) 77 03/29/2015 [facility] Heart Rate 73 03/29/2015 [facility] Height 68 0 05/31/2010 [facility] Weight 186 05/31/2010 [facility] Temperature Oral (F) 97.0 F 05/31/2010 [facility] Heart Rate 63 05/31/2010 [facility] Systolic (mm Hg) 110 05/31/2010 [facility] Diastolic (mm Hg) 55 05/31/2010 [facility] Height 68 0 05/15/2010 [facility] Weight 183 05/15/2010 [facility] Heart Rate 56 05/15/2010 [facility] Systolic (mm Hg) 130 05/15/2010 [facility] Diastolic (mm Hg) 65 05/15/2010 [facility] Weight 185 01/20/2010 [facility] Temperature Oral (F) 98.3 F 01/20/2010 [facility] Heart Rate 73 01/20/2010 [facility] Systolic (mm Hg) 133 01/20/2010 [facility] Diastolic (mm Hg) 68 01/20/2010 [facility] Height 68 0 01/20/2010 [facility] Height 68 0 01/16/2010 [facility] Weight 184 01/16/2010 [facility] Systolic (mm Hg) 108 01/16/2010 [facility] Diastolic (mm Hg) 60 01/16/2010 [facility] Temperature Oral (F) 97.9 F 01/16/2010 [facility] Heart Rate 82 01/16/2010 [facility] Height 68 0 03/30/2009 [facility] Weight 182 03/30/2009 [facility] Systolic (mm Hg) 110 03/30/2009 [facility] Diastolic (mm Hg) 70 03/30/2009 [facility] Weight 177 11/10/2008 [facility] Height 68 0 11/10/2008 [facility] Systolic (mm Hg) 120 11/10/2008 [facility] Diastolic (mm Hg) 61 11/10/2008 [facility] Encounters Location Location Details Encounter Type Encounter Number Reason For Visit Attending Provider ADM Date DC Date Status Source [facility] Office Visit [id number] Bert Cain MD 03/29/2015 03/29/[address] [facility] Lab Report [id number] Bert Cain MD 03/30/2015 03/30/2015 [facility] Outpatient [id number] Bert Cain 03/31/2015 04/01/2015 [facility] Office Visit [id number] Bert Cain MD 04/18/2015 04/18/2015 [facility] Emergency [id number] Jonathan Iheme 08/25/2018 08/26/2018 [facility] ([facility]) Emergency [id number] Savita Alcanter 09/01/2018 09/01/2018 [facility] Procedures Procedure Code Date Perfomer Comments Source mammogram 03324 11/28/1989 Completed [facility] Gallbladder operation [id number] [facility] Knee replacement [id number] [facility] Mastectomy [id number] [facility] st Tonsillectomy and adenoidectomy [id number] [facility] Assessment and Plan No Data Provided for This Section Plan of Care No Data Provided for This Section Social History Social History Date Source Social History TypeResponse Smoking Status Never smoker; Type: Cigarettes; Previous treatment: None; Ready to change: No; Concerns about tobacco use in household: No; Exposure to Tobacco Smoke None; Cigarette Smoking Last 365 Days No; Reg Smoking Cessation Counseling No entered on: 09/01/18 09/01/2018 [facility] Family History No Data Provided for This Section Advance Directives No Data Provided for This Section Functional Status No Data Provided for This Section
--- OUTSIDE RECORDS SUMMARY | 2020-03-21 01:54 | XMS REPORT ---
Author Author [facility] t Organization [facility] Address [address] [place] [address] Phone Unavailable Care Team Providers Care Vibration Engineer Name Role Phone MD KEHINDE GRIMES MD PCP CHRISTIANO CUI Attphys Unavailable Magdiel Hughes Attphys Shelby Michelle Attphys Isreal CONN Attphys Unavailable Bert Cain Attphys CHRISTIANO CUI Admphys Unavailable Payers Payer Name Policy Type Policy Number Effective Date Expiration Date Liudmila spear Medicare A & B NA 2002 00:00:00 C [facility] [employer] Hmo NA 1992 00:00:00 [facility] Problems Condition Name Condition Details Condition Category Status Onset Date Resolution Date Last Treatment Date Treating Clinician Comments Source STITCH REMOVAL STIT CH REMOVAL Active 09/01/2018 [facility] Diagnosis Active 2018-09-01 00:00:00 2018-09-02 18:42:00 [facility] FALL FALL Active 08/25/2018 [facility] Diagnosis Active 2018-08-25 13:30:00 2018-08-30 11:27:00 [facility] DEFICIENCY, VITAMIN D NOS DEFI CIENCY, VITAMIN D NOS Active 03/29/2015 Condition 04/18/2015 [facility] Condition Active 2015-03-29 00:00:00 2015-04-18 07:50:51 [facility] HTN, BENIGN HTN, BENIGN Active 03/29/2015 Condition 04/18/2015 [facility] Condition Active 2015-03-29 00:00:00 2015-03 07:50:51 [facility] Benign hypertension (disorder) Benign hypertension (disorder) Active 03/29/2015 Problem 03/21/2019 Data migrated from [employer] on 04/27/15. [facility] Problem Active 2015-03-29 00:00:00 2019-03-21 11:36:19 [facility] Vitamin D deficiency (disorder) Vitamin D deficiency (disorder) Active 03/29/2015 Problem 03/21/2019 Data migrated from [employer] on 04/27/15. [facility] Problem Active 2015-03-29 00:00:00 2019-03-21 11:36:19 [facility] THYROID CYST THYR OID CYST Active 03/29/2015 [facility] Diagnosis Active 2015-03-29 00:00:00 2015-03-31 10:43:00 [facility] ACUTE MAXILLARY SINUSITIS ACUT E MAXILLARY SINUSITIS Active 05/31/2010 Condition 04/18/2015 [facility] Condition Active 2010-05-31 00:00:00 2015-04-18 07:50:51 [facility] Cough (finding) Coug h (finding) Active 05/31/2010 Problem 03/21/2019 Data migrated from [employer] on 04/27/15.Data migrated from [employer] on 04/27/15.Data migrated from [employer] on 03/22/15.Data migrated from [employer] on 03/22/15. [facility] Problem Active 2010-05-31 00: 00:00 2019-03-21 11:36:19 [facility] Acute maxillary sinusitis (disorder) Acute maxillary sinusitis (disorder) Active 05/31/2010 Problem 03/21/2019 Data migrated from [employer] on 04/27/15. [facility] Problem Active 2010-05-31 00:00: 00 2019-03-21 11:36:19 [facility] INCONTINENCE, URGE INCO NTINENCE, URGE Active 05/15/2010 Condition 04/18/2015 [facility] Condition Active 2010-05-15 00:00:00 2015-04-18 07:50:51 [facility] NEED PROPH VACCINATION AGAINST STREP PNEUMONE NEED PROPH VACCINATION AGAINST STREP PNEUMONE Active 05/15/2010 Condition 04/18/2015 [facility] Condition Active 2010-05-15 00:00:00 2015-04-18 07:50:51 [facility] Urge incontinence of urine (finding) Urge incontinence of urine (finding) Active 05/15/2010 Problem 03/21/2019 Data migrated from [employer] on 04/27/15.Data migrated from [employer] on 03/22/15.Data migrated from [employer] on 03/22/15. [facility] Problem Active 2010-05-15 00:00:00 2019-03-21 11:36:19 [facility] PNEUMONIA PNEU MONIA Active 01/20/2010 Condition 04/18/2015 [facility] Condition Active 2010-01-20 00:00:00 2015-04-18 07:50:5 1 [facility] Pneumonia (disorder) Pneu monia (disorder) Active 01/20/2010 Problem 03/21/2019 Data migrated from [employer] on 04/27/15. [facility] Problem Active 2010-01-20 00:00:00 2019-03-21 11:36:19 [facility] OTHER SCREENING MAMMOGRAM OTHE R SCREENING MAMMOGRAM Active 01/16/2010 Condition 04/18/2015 [facility] Condition Active 2010-01-16 00:00:00 2015-04-18 07:50:51 [facility] SPECIAL SCREENING FOR MALIGNANT NEOPLASMS COLON SPECIAL SCREENING FOR MALIGNANT NEOPLASMS COLON Active 01/16/2010 Condition 04/18/2015 [facility] Condition Active 2010-01-16 00:00:00 2015-04-18 07:50:51 [facility] MYALGIA MYAL NERY Active 01/16/2010 Condition 04/18/2015 [facility] Condition Active 2010-01-16 00:00:00 2015-04-18 07:50:51 [facility] FEVER PRESENTING CONDITIONS CLASSIFIED ELSEWHERE FEVER PRESENTING CONDITIONS CLASSIFIED ELSEWHERE Active 01/16/2010 Condition 04/18/2015 [facility] Condition Active 2010-01-16 00:00:00 2015-04-18 07:50:51 [facility] COUGH COUG H Active 01/16/2010 Condition 04/18/2015 [facility] Condition Active 2010-01-16 00:00:00 2015-04-18 07:50:51 [facility] BACK PAIN BACK PAIN Active 01/16/2010 Condition 04/18/2015 [facility] Condition Active 2010-01-16 00:00:00 2015-04-18 07:50:5 1 [facility] Fever (finding) Feve r (finding) Active 01/16/2010 Problem 03/21/2019 Data migrated from [employer] on 03/22/15.Data migrated from [employer] on 03/22/15. [facility] Problem Active 2010-01-16 00:00:00 2019-03-21 11:36:19 [facility] Muscle pain (finding) Musc le pain (finding) Active 01/16/2010 Problem 03/21/2019 Data migrated from [employer] on 04/27/15.Data migrated from [employer] on 03/22/15.Data migrated from [employer] on 03/22/15. [facility] Problem Active 2010-01-16 00:00:00 2019-03-21 11:36:19 [facility] Backache (finding) Back ache (finding) Active 01/16/2010 Problem 03/21/2019 Data migrated from [employer] on 04/27/15. [facility] Problem Active 2010-01-16 00:00:00 2019-03-21 11:36:19 [facility] Screening mammography (procedure) Screening mammography (procedure) Active 01/16/2010 Problem 03/21/2019 Data migrated from [employer] on 04/27/15. [facility] Problem Active 2010-01-16 00:00:00 2019-03-21 11:36:19 [facility] THYROID CYST THYR OID CYST Active 03/30/2009 Condition 04/18/2015 [facility] Condition Active 2009-03-30 00:00:00 2015-04-18 07:50:51 [facility] Cyst of thyroid (disorder) Cys t of thyroid (disorder) Active 03/30/2009 Problem 03/21/2019 Data migrated from [employer] on 04/27/15.Data migrated from [employer] on 03/22/15.Data migrated from [employer] on 03/22/15. [facility] Problem Active 2009-03-30 00:00:00 2019-03-21 11:36:19 [facility] GLAUCOMA GLAU COMA Active 11/10/2008 Condition 04/18/2015 [facility] Condition Active 2008-11-10 00:00:00 2015-04-18 07:50:51 [facility] ALLERGIC RHINITIS DIANE RGIC RHINITIS Active 11/10/2008 Condition 04/18/2015 [facility] Condition Active 2008-11-10 00:00:00 2015-04-18 07:50:51 [facility] IMPAIRED FASTING GLUCOSE IMPA IRED FASTING GLUCOSE Active 11/10/2008 Condition 04/18/2015 [facility] Condition Active 2008-11-10 00:00:00 2015-04-18 07:50:51 [facility] CAD CAD Active 11/10/2008 Condition 04/18/2015 [facility] Condition Active 2008-11-10 00:00:00 2015-04-18 07:50:51 [facility] KNEE PAIN KNEE PAIN Active 11/10/2008 Condition 04/18/2015 [facility] Condition Active 2008-11-10 00:00:00 2015-04-18 07:50:5 1 [facility] Allergic rhinitis (disorder) A llergic rhinitis (disorder) Active 11/10/2008 Problem 03/21/2019 Data migrated from [employer] on 04/27/15.Data migrated from [employer] on 03/22/15.Data migrated from [employer] on 03/22/15. [facility] Problem Active 2008-11-10 00:00:00 2019-03-21 11:36:19 [facility] Coronary arteriosclerosis (disorder) Coronary arteriosclerosis (disorder) Active 11/10/2008 Problem 03/21/2019 Data migrated from [employer] on 04/27/15.Data migrated from [employer] on 03/22/15.Data migrated from [employer] on 03/22/15. [facility] Problem Active 2008-11-10 00:00:00 2019-03-21 11:36:19 [facility] Glaucoma (disorder) Glau coma (disorder) Active 11/10/2008 Problem 03/21/2019 Data migrated from [employer] on 04/27/15.Data migrated from [employer] on 03/22/15.Data migrated from [employer] on 03/22/15. 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 [facility] Problem Active 2008-11-10 00:00:00 2019-03-21 11:36:19 [facility] Knee pain (finding) Knee pain (finding) Active 11/10/2008 Problem 03/21/2019 Data migrated from [employer] on 04/27/15.Data migrated from [employer] on 03/22/15.Data migrated from [employer] on 03/22/15. [facility] Problem Active 2008-11-10 00:00:00 2019-03-21 11:36:19 [facility] GERD GERD Active 11/09/2008 Condition 04/18/2015 [facility] Condition Active 2008-11-09 00:00:00 2015-04-18 07:50:51 [facility] URINARY INCONTINENCE URIN CLAY INCONTINENCE Active 11/09/2008 Condition 04/18/2015 [facility] Condition Active 2008-11-09 00:00:00 2015-04-18 07:50:51 [facility] BRONCHITIS BRON CHITIS Active 11/09/2008 Condition 04/18/2015 [facility] Condition Active 2008-11-09 00:00:00 2015-04-18 0 7:50:51 [facility] Gastroesophageal reflux disease (disorder) Gastroesophageal reflux disease (disorder) Active 11/09/2008 Problem 03/21/2019 Data migrated from [employer] on 04/27/15.Data migrated from [employer] on 03/22/15.Data migrated from [employer] on 03/22/15. [facility] Problem Active 2008-11-09 00:00:00 2019-03-21 11:36:19 [facility] Urinary incontinence (finding) Urinary incontinence (finding) Active 11/09/2008 Problem 03/21/2019 Data migrated from [employer] on 04/27/15.Data migrated from [employer] on 03/22/15.Data migrated from [employer] on 03/22/15. [facility] Problem Active 2008-11-09 00:00:00 2019-03-21 11:36:19 [facility] Bronchitis (disorder) Bron chitis (disorder) Active 11/09/2008 Problem 03/21/2019 Data migrated from [employer] on 04/27/15. [facility] Problem Active 2008-11-09 00:00:00 2019-03-21 11:36:19 [facility] Palpitations Problem Active [facility] DIABETES - DM FH D IABETES - DM Active Condition 04/18/2015 [facility] Condition Active 2015-04-18 07:50:51 [facility] FH STROKE FH S TROKE Active Condition 04/18/2015 [facility] Condition Active 2015-04-18 07:50:51 [facility] FH HEART DISEASE FH H EART DISEASE Active Condition 04/18/2015 [facility] Condition Active 2015-04-18 07:50:51 [facility] Unspecified fall, subsequent encounter Unspecified fall, subsequent encounter 03/21/2019 [facility] Problem 2019-03-21 11:36:19 [facility] Other specified soft tissue disorders Other specified soft tissue disorders 03/21/2019 [facility] Problem 2019-03-21 11:36:19 [facility] Essential (primary) hypertension Essential (primary) hypertension 03/21/2019 [facility] Problem 2019-03-21 11:36:19 [facility] Atherosclerotic heart disease of jena coronary arter y without angina pectoris Atherosclerotic heart disease of jena coronary artery without angina pectoris 03/21/2019 [facility] Problem 2019-03-21 11:36:19 [facility] Family history of stroke (context-dependent category) Family history of stroke (context-dependent category) Active Problem 03/21/2019 Data migrated from [employer] on 04/27/15. [facility] Problem Active 2019-03-21 11:36:19 [facility] Family history: Cardiac disorder (context-dependent ca tegory) Family history: Cardiac disorder (context-dependent category) Active Problem 03/21/2019 Data migrated from [employer] on 04/27/15. [facility] Problem Active 2019-03-21 11:36:19 [place] Fall (on) (from) other stairs and steps, initial encou nter Fall (on) (from) other stairs and steps, initial encounter 03/14/2019 [facility] Problem 2019-03-14 12:15:57 [facility] Malignant neoplasm of unspecified site of unspecified female breast Malignant neoplasm of unspecified site of unspecified female breast 03/14/2019 [facility] Problem 2019-03-14 12:15:5 7 [facility] Allergy status to other drugs, medicaments and biologi ricardo substances status Allergy status to other drugs, medicaments and biological substances status 03/14/2019 [facility] Problem 03-14 12:15:57 [facility] Allergy status to other antibiotic agents status Allergy status to other antibiotic agents status 03/14/2019 [facility] Problem 2019-03-14 12:15:57 [facility] Allergy status to analgesic agent status Allergy status to analgesic agent status 03/14/2019 [facility] Problem 2019-03-14 12:15:57 [facility] Encounter for immunization Enc ounter for immunization 03/14/2019 [facility] Problem 2019-03-14 12:15:5 7 [facility] OCL CRTD ART WO INFRCT OCL CRTD ART WO INFRCT Active [facility] Diagnosis Active 2015-03-31 10:43:00 [facility] Laceration without foreign body of other part of head, subsequent encounter Laceration without foreign body of other part of head, subsequent encounter 09/06/2018 03/21/2019 [facility] Problem 2018-09-06 04:36:09 2019-03-21 11:36:19 2019-03-21 11:36:19 [facility] Pain in right wrist Pain in right wrist 09/01/2018 03/21/2019 [facility] Problem 2018-09-01 06:00:00 2019-03-21 11:36: 19 2019-03-21 11:36:19 [facility] Pain in unspecified wrist Pain in unspecified wrist 09/01/2018 03/21/2019 [facility] Problem 2018-09-01 06:00:00 2018 11:36:19 2019-03-21 11:36:19 [facility] Encounter for removal of sutures Encounter for removal of sutures 09/01/2018 03/21/2019 [facility] Problem 201 05-31-12 06:00:00 2019-03-21 11:36:19 2019-03-21 11:36:19 [facility] Pain in right hand Pain in right hand 09/01/2018 03/21/2019 [facility] Problem 2018-09-01 06:00:00 2019-03-21 11:36:19 2019-03-21 11:36:19 [facility] Laceration without foreign body of scalp, initial enco unter Laceration without foreign body of scalp, initial encounter 08/25/2018 03/14/2019 [facility] Problem 2018-08-25 06:00:00 2019-03-14 12:15:5 7 2019-03-14 12:15:57 [facility] Unspecified fall, initial encounter Unspecified fall, initial encounter 08/25/2018 03/14/2019 [facility] Problem 2018-08-25 06:00:00 2019-03-14 12:15:57 2019-03-14 12:15:57 [facility] Laceration without foreign body of other part of head, initial encounter Laceration without foreign body of other part of head, initial encounter 08/25/2018 03/14/2019 [facility] Problem 2017 06:00:00 2019-03-14 12:15:57 2019-03-14 12:15:57 [facility] Allergies, Adverse Reactions, Alerts Allergy Name Allergy Type Status Severity Reaction(s) Onset Date Inacti ve Date Treating Clinician Comments Source ibuprofen<sup>1</sup> ibuprofen<sup>1</sup> Active 2014 05:00:00 [facility] ePHEDrine<sup>3</sup> ePHEDrine<sup>3</sup> Active 2014 05:00:00 [facility] BROMDAY BROMDAY Active 2015-03-29 00:00:00 [facility] IBUPROFEN IBUPROFEN Active 2015-03-29 00:00:00 [facility] EPHEDRINE EPHEDRINE Active 2015-03-29 00:00:00 [facility] BIAXIN BIAXIN Active 2008-11-09 00:00:00 [facility] Biaxin Biaxin Active [facility] decongestants decongestants Active [facility] Social History Social Habit Start Date Stop Date Quantity Comments Source Sex Ass[birth year] At 1935 00:00:00 1935 00:00:00 Female [facility] Smoking Status Start Date Stop Date Source Social History [facility] Medications Ordered Medication Name Filled Medication Name Start Date Stop Da te Current Medication? Ordering Clinician Indication Dosage Frequency Signature (SIG) Comments Components Source Atorvastatin Calcium (Lipitor*) 10 Mg TABLET Atorvasta tin Calcium (Lipitor*) 10 Mg TABLET 2020-03-15 12:20:00 Yes 10 Bedtime [facility] Nifedipine (Nifedipine Er) 30 Mg TAB.ER.24 Nifedipine (Nifedipine Er) 30 Mg TAB.ER.24 2020-03-15 12:16:00 Yes 30 Every 12 Hours [facility] Sulfamethoxazole 800 MG / Trimethoprim 160 MG Oral Tablet [B actrim] 2018-08-26 00:09:00 No 1 tab, PO, BID, X 7 day, # 1 4 tab, 0 Refill(s) [facility] COSOPT PF SOLN 2015-03-29 00:00:00 Yes one drop in each eye twice daily [facility] TRAMADOL HCL 50 MG TABS 2015-03-29 00:00:00 Yes one to two tab s by mouth twice daily [facility] TRAMADOL HCL 50 MG TABS 2015-03-29 00:00:00 Yes one to two tab s by mouth twice daily [facility] AVELOX 400 MG TABS 2010-05-31 00:00:00 No one daily for sinus infection [facility] PROMETHAZINE-DM 6.25-15 MG/5ML SYRP 2010-05-31 00:00:00 No one teaspoon every 4-6 hours and 2 teaspoons HS for cough/ congestion [facility] SINGULAIR 10 MG TABS 2010-05-31 00:00:00 No daily [facility] CLARINEX 5 MG TABS 2010-05-31 00:00:00 No d aliy [facility] PROMETHAZINE-DM 6.25-15 MG/5ML SYRP 2010-05-15 00:00:00 No 2 teaspoons HS prn cough [facility] BACTRIM DS 800-160 MG TABS 2010-05-15 00:00:00 No one BID x 7 days (to begin Saturday01/23/2010) Medical oup LEVAQUIN 750 MG TABS 2010-05-15 00:00:00 No 1 po daily x 7 days. [facility] ASTEPRO 137 MCG/SPRAY SOLN 2010-05-15 00:00:00 No 2 spn BID [facility] TRAVATAN SOLN 2008-11-10 00:00:00 No 1 drop each eye daily (per Sludge Control Operator) [facility] ATENOLOL TAB 25MG 2008-11-09 00:00:00 Yes 1/2 tab by mouth daily [facility] ATENOLOL TAB 25MG 2008-11-09 00:00:00 Yes 1/2 tab by mouth daily [facility] Amlodipine Besylate Amlodipine Besylate Yes 5 Daily [facility] Atenolol Atenolol Yes 25 Daily [facility] Berberine Berberine Yes 1 Daily [facility] Dorzolamide Hcl/Timolol Maleat (Dorzolamide-Timolol Ey e Drops) 10 Ml DROPS Dorzolamide Hcl/Timolol Maleat (Dorzolamide-Timolol Eye Drops) 10 Ml DROPS Yes 10 Twice A Day [facility] Multivitamin (Multivitamins) 1 Each CAPSULE Multivitam in (Multivitamins) 1 Each CAPSULE Yes 1 Twice A Day [facility] Natakinase Natakinase Yes 1 Daily [facility] Tramadol Hcl (Ultram) 50 Mg TABLET Tramadol Hcl (Ultram) 50 Mg TABLET Yes 50 Twice A Day as needed for Pain [facility] Amlodipine Besylate Amlodipine Besylate 2020-03-15 00:00:00 No 5 Daily [facility] Vital Signs Vital Name Observation Time Observation Value Comments Source Body Temperature 2020-03-15 11:45:00 97.7 [degF] [facility] BMI (Body Mass Index) 2020-03-13 20:00:00 24.3 kg/m2 [facility] Weight 2020-03-13 16:06:00 160 [lb_av] [facility] Temperature Oral (F) 2018-09-01 18:00:00 98.5 F [facility] Heart Rate 2018-09-01 18:00:00 [facility] Respitory Rate 2018-09-01 18:00:00 [facility] Systolic (mm Hg) 2018-09-01 18:00:00 [facility] Diastolic (mm Hg) 2018-09-01 18:00:00 [facility] Heart Rate 2018-09-01 17:21:00 [facility] Systolic (mm Hg) 2018-09-01 17:21:00 [facility] Diastolic (mm Hg) 2018-09-01 17:21:00 [facility] Respitory Rate 2018-09-01 17:21:00 [facility] Height 2018-09-01 16:49:00 172.72 cm [facility] BMI Calculated 2018-09-01 16:49:00 [facility] Weight 2018-09-01 16:49:00 [facility] Respitory Rate 2018-09-01 16:49:00 [facility] Temperature Oral (F) 2018-09-01 16:49:00 98.7 F [facility] Systolic (mm Hg) 2018-09-01 16:49:00 [facility] Diastolic (mm Hg) 2018-09-01 16:49:00 [facility] Heart Rate 2018-09-01 16:49:00 [facility] Heart Rate 2018-08-26 00:00:00 [facility] Respitory Rate 2018-08-26 00:00:00 [facility] Systolic (mm Hg) 2018-08-26 00:00:00 [facility] Diastolic (mm Hg) 2018-08-26 00:00:00 [facility] Respitory Rate 2018-08-25 22:00:00 [facility] Heart Rate 2018-08-25 22:00:00 [facility] Systolic (mm Hg) 2018-08-25 22:00:00 [facility] Diastolic (mm Hg) 2018-08-25 22:00:00 [facility] Heart Rate 2018-08-25 21:34:00 [facility] Respitory Rate 2018-08-25 21:34:00 [facility] Systolic (mm Hg) 2018-08-25 21:34:00 [facility] Diastolic (mm Hg) 2018-08-25 21:34:00 [facility] Temperature Oral (F) 2018-08-25 21:04:00 98.4 F [facility] Weight 2018-08-25 21:04:00 [facility] Height 2018-08-25 21:04:00 175.26 cm [facility] BMI Calculated 2018-08-25 21:04:00 [facility] Height 2015-04-18 12:50:51 [facility] Weight 2015-04-18 12:50:51 [facility] Systolic (mm Hg) 2015-04-18 12:50:51 [facility] Diastolic (mm Hg) 2015-04-18 12:50:51 [facility] Heart Rate 2015-04-18 12:50:51 [facility] Temperature Oral (F) 2015-04-18 12:50:51 97.4 F [facility] Height 2015-03-29 18:06:01 [facility] Weight 2015-03-29 18:06:01 [facility] Temperature Oral (F) 2015-03-29 18:06:01 97.2 F [facility] Systolic (mm Hg) 2015-03-29 18:06:01 [facility] Diastolic (mm Hg) 2015-03-29 18:06:01 [facility] Heart Rate 2015-03-29 18:06:01 [facility] Height 2010-05-31 14:24:21 [facility] Weight 2010-05-31 14:24:21 [facility] Temperature Oral (F) 2010-05-31 14:24:21 97.0 F [facility] Heart Rate 2010-05-31 14:24:21 [facility] Systolic (mm Hg) 2010-05-31 14:24:21 [facility] Diastolic (mm Hg) 2010-05-31 14:24:21 [facility] Height 2010-05-15 12:17:20 [facility] Weight 2010-05-15 12:17:20 [facility] Heart Rate 2010-05-15 12:17:20 [facility] Systolic (mm Hg) 2010-05-15 12:17:20 M ed[facility] Group Diastolic (mm Hg) 2010-05-15 12:17:20 [facility] Weight 2010-01-20 13:56:00 [facility] Temperature Oral (F) 2010-01-20 13:56:00 98.3 F [facility] Heart Rate 2010-01-20 13:56:00 [facility] Systolic (mm Hg) 2010-01-20 13:56:00 M edical Group Diastolic (mm Hg) 2010-01-20 13:56:00 [facility] Height 2010-01-20 13:56:00 [facility] Height 2010-01-16 14:27:30 [facility] Weight 2010-01-16 14:27:30 [facility] Systolic (mm Hg) 2010-01-16 14:27:30 [facility] Diastolic (mm Hg) 2010-01-16 14:27:30 [facility] Group Temperature Oral (F) 2010-01-16 14:27:30 97.9 F [facility] Heart Rate 2010-01-16 14:27:30 [facility] Height 2009-03-30 14:29:10 [facility] Weight 2009-03-30 14:29:10 [facility] al Group Systolic (mm Hg) 2009-03-30 14:29:10 M edical Group Diastolic (mm Hg) 2009-03-30 14:29:10 [facility] Weight 2008-11-10 14:36:30 [facility] al Group Height 2008-11-10 14:36:30 [facility] Systolic (mm Hg) 2008-11-10 14:36:30 M edical Group Diastolic (mm Hg) 2008-11-10 14:36:30 [facility] Procedures Procedure Date / Time Performed Performing Clinician [facility] mammogram 1989-11-28 06:00:00 [facility] Gallbladder operation [facility] Knee replacement [facility] Mastectomy [facility] Tonsillectomy and adenoidectomy [facility] Plan of Care Planned Activity Planned Date Details Comments Source Instructions Hypertension [facility] Encounters Start Date/Time End Date/Time Encounter Type Admission Type [facility] Care Department Encounter ID Source 2018-09-01 16:44:00 2018-09-01 18:10:00 [facility] [id number] 2018-09-01 10:44:00 2018-09-01 12:10:00 Outpatient Savita Jimenez [facility] [id number] 2018-08-25 21:02:00 2018-08-26 00:15:00 [facility] [id number] [facility] 2018-08-25 15:02:00 2018-08-25 18:15:00 Outpatient Jonathan Michelle [facility] [id number] 2018-04-28 10:00:00 2018-04-29 16:02:00 Discharged Inpatient (obs) 3 JIM CONN [facility] [id number] [facility] 2015-04-18 00:00:00 2015-04-18 00:00:00 Office Visit FILI [facility] [id number] [facility] 2015-03-31 15:38:00 2015-04-01 04:59:00 Outpatient [facility] [id number] [facility] 2015-03-31 10:38:00 2015-03-31 23:59:00 Outpatient Ant Larry mayi [facility] [id number] 2015-03-30 00:00:00 2015-03-30 00:00:00 Lab Report [facility] [id number] [facility] 2015-03-29 00:00:00 2015-03-29 00:00:00 Office Visit [facility] [id number] [facility] Results Test Description Test Time Test Comments Results Result Comments Source Blood leukocytes automated count (number/volume) 2020-03-15 05:35:00 Test Item White Blood Count (test code = 6690-2) 8.15 4.8-10.8 [facility] erythrocytes automated count (number/volume)2020-03-15 05:35:00* Test Item Value Reference Range Interpretation Comments Red Blood Count (test code = 789-8) 4.65 3.6-5.1 [facility] hemoglobin measurement (moles/volume)2020-03-15 05:35:00* Test Item Value Reference Range Interpretation Comments Hemoglobin (test code = 87975-1) 13.2 12.0-16.0 [facility]ervilleAutomated blood hematocrit (volume fraction)2020-03-15 05:35:00* Test Item Value Reference Range Interpretation Comments Hematocrit (test code = 4544-3) 39.6 34.2-44.1 [facility]ervilleAutomated erythrocyte mean corpuscular vfclkj6797-87-20 05:35:00* Test Item Value Reference Range Interpretation Comments Mean Corpuscular Volume (test code = 787-2) 85.2 81-99 VERIFIED PREVIOUS RESULTSB[facility] & [facility]ugervilleAutomated erythrocyte mean corpuscular hemoglobin (mass per erythrocyte)2020-03-15 05:35:00* Test Item Value Reference Range Interpretation Comments Mean Corpuscular Hemoglobin (test code = 785-6) 28.4 28-32 [facility]ervilleAutomated erythrocyte mean corpuscular hemoglobin concentration measurement (mass/volume)2020-03-15 05:35:00* Test Item Value Reference Range Interpretation Comments Mean Corpuscular Hemoglobin Concent (test code = 786-4) 33.3 31-35 [facility] PflugervilleRDW ZtjAy-Sca9449-14-26 05:35:00* Test Item Value Reference Range Interpretation Comments Red Cell Distribution Width (test code = 34475-8) 14.3 11.7 -14.4 [facility]ervilleAutomated blood platelet count (count/volume)2020-03-15 05:35:00* Test Item Value Reference Range Interpretation Comments Platelet Count (test code = 777-3) 179 140-360 [facility]ervilleAutformerly [facility]ard[facility] careed blood segmented neutrophil count as percentage of total kpodpxpopx2162-23-62 05:35:00* Test Item Value Reference Range Interpretation Comments Neutrophils (%) (Auto) (test code = 73649-0) 61.4 38.7-80.0 [facility]ugervilleAutomated blood lymphocyte count as percentage ot total aepjxekhpg4448-50-08 05:35:00* Test Item Value Reference Range Interpretation Comments Lymphocytes (%) (Auto) (test code = 736-9) 26.5 18.0-39.1 [facility]ugervilleAutomated blood monocyte count as percentage of total lwoyiyallj8924-49-42 05:35:00* Test Item Value Reference Range Interpretation Comments Monocytes (%) (Auto) (test code = 5905-5) 7.9 4.4-11.3 [facility]ugervilleAutomated blood eosinophil count as percentage of total larhjlpgjf3436-14-76 05:35:00* Test Item Value Reference Range Interpretation Comments Eosinophils (%) (Auto) (test code = 713-8) 2.9 0.0-6.0 [facility]ugervilleAutomated blood basophil count as percentage of total udgtguoskb1244-71-75 05:35:00* Test Item Value Reference Range Interpretation Comments Basophils (%) (Auto) (test code = 706-2) 0.9 0.0-1.0 [facility] PflugervilleFluoroscopic procedure less than one hour ciimnoro8068-92-17 05:35:00* Test Item Value Reference Range Interpretation Comments IM GRANULOCYTES % (test code = IM GRANULOCYTES %) 0.4 0.0- 1.0 [facility] PflugervilleAutomated blood neutrophil count 2020-03-15 05:35:00* Test Item Value Reference Range Interpretation Comments Neutrophils # (Auto) (test code = 751-8) 5.0 2.1-6.9 [facility]ervilleBlood lymphocytes count (number/volume) 2020-03-15 05:35:00* Test Item Value Reference Range Interpretation Comments Lymphocytes # (Auto) (test code = 20329-0) 2.2 1.0-3.2 [facility] monocytes automated count (number/volume)2020-03-15 05:35:00* Test Item Value Reference Range Interpretation Comments Monocytes # (Auto) (test code = 742-7) 0.6 0.2-0.8 [facility]ervilleAutomated blood eosinophil count 2020-03-15 05:35:00* Test Item Value Reference Range Interpretation Comments Eosinophils # (Auto) (test code = 711-2) 0.2 0.0-0.4 [facility]ervilleAutomated blood basophil count (count/volume)2020-03-15 05:35:00* Test Item Value Reference Range Interpretation Comments Basophils # (Auto) (test code = 704-7) 0.1 0.0-0.1 [facility]ervilleFluoroscopic procedure less than one hour cpybjtxu7397-22-99 05:35:00* Test Item Value Reference Range Interpretation Comments Absolute Immature Granulocyte (auto (ame t code = Absolute Immature Granulocyte (auto) 0.03 0-0.1 [facility] sodium measurement (moles/volume)2020-03-15 05:35:00* Test Item Value Reference Range Interpretation Comments Sodium Level (test code = 2951-2) 140 136-145 [facility] Hospitaler[facility] or plasma potassium measurement (moles/volume)2020-03-15 05:35:00* Test Item Value Reference Range Interpretation Comments Potassium Level (test code = 2823-3) 3.5 3.5-5.1 [facility]er[facility] or plasma chloride measurement (moles/volume)2020-03-15 05:35:00* Test Item Value Reference Range Interpretation Comments Chloride Level (test code = 2075-0) 110 98-107 [facility]er[facility] or plasma carbon dioxide, total measurement (moles/volume)2020-03-15 05:35:00* Test Item Value Reference Range Interpretation Comments Carbon Dioxide Level (test code = 2028-9) 23 22-29 [facility]er[facility] or plasma anion lco2836-27-24 05:35:00* Test Item Value Reference Range Interpretation Comments Anion Gap (test code = 57926-1) 10.5 8-16 [facility]er[facility] plasma urea nitrogen measurement (mass/volume)2020-03-15 05:35:00* Test Item Value Reference Range Interpretation Comments Blood Urea Nitrogen (test code = 3094-0) 23 7-26 [facility]er[facility] or plasma creatinine measurement (mass/volume)2020-03-15 05:35:00* Test Item Value Reference Range Interpretation Comments Creatinine (test code = 2160-0) 0.80 0.57-1.11 [facility] Hospitalerum or plasma urea nitrogen/creatinine mass bpeow0355-55-66 05:35:00* Test Item Value Reference Range Interpretation Comments BUN/Creatinine Ratio (test code = 3097-3) 29 6-25 [facility]ervilleEstimated glomerular filtration rate (GFR) mtycgvijgskjf1577-74-57 05:35:00* Test Item Value Reference Range Interpretation Comments Estimat Glomerular Filtration Rate (test code = 086610898) > 60 >60 Ranges were taken from the National Kidney Disease Education Program and the [facility] Kid[facility] Foundation literature.Reference ranges:60 or greater: Pawvds71-61 ( for 3 consecutive months): Chronic kidney disease 15 or less: Kidney failureBaylor Scott & White Medical Center – PflugervilleGlucose uysenqjxtpp6853-48-52 05:35:00* Test Item Value Reference Range Interpretation Comments Glucose Level (test code = NRY6270) 126 74-118 [facility]er[facility] or plasma calcium measurement (mass/volume)2020-03-15 05:35:00* Test Item Value Reference Range Interpretation Comments Calcium Level (test code = 39389-8) 9.1 8.4-10.2 [facility]ervillePhosphorus uyemliwkahh5708-61-29 05:35:00 * Test Item Value Reference Range Interpretation Comments Phosphorus Level (test code = YIT6754) 3.8 2.3-4.7 [facility] Hospitalerum or plasma magnesium measurement (mass/volume)2020-03-15 05:35:00* Test Item Value Reference Range Interpretation Comments Magnesium Level (test code = 94837-3) 2.0 1.3-2.1 [facility]ervilleCHEST SINGLE (PORTABLE)2020-03-14 07:53:00 [place] [address] Patient Name: ANTELMO PAGAN MR #: [id number] : 1935 Age/Sex: 84/F Req #: [id number] Adm Physician: CHRISTIANO CUI MD Ordered by: CHRISTIANO CUI MD Report #: [id number] Location: MED/SURG Room/Bed: [facility] Procedure: [id number] DX/CHEST SINGL E (PORTABLE) Exam Date: 03/14/20 Exam Time: 0630 REPORT STATUS: Signed Examination: Single AP view of the chest. COMPARISON: Portable chest 03/13/2020 OSBALDO CATION: Palpitations, shortness of breath IMPRESSION: 1. Lines a nd Tubes: None 2. Hyperinflated lungs. Interval improvement in previously vis ualized prominent perihilar interstitial markings/interstitial opacities, sugg esting improved mild interstitial edema. 3. Cardiomediastinal silhouette is normal. Mild central pulmonary venous congestion, improved since prior exam 4. No acute bony abnormalities. Signed by: Dr. Jose Enrique Fernandez M.D. o n 03/14/2020 7:54 AM Dictated By: JOSE ENRIQUE FERNANDEZ MD 0754 Transcribed By: EJ on 03/14/20 075 4 COPY TO: CHRISTIAON CUI MD Fluoroscopic procedure less than one hour nixibsab2520-83-88 02:53:00* Test Item Value Reference Range Interpretation Comments Hemoglobin A1c Percent (test code = Hemoglobin A1c Percent) 6.2 4.0-7.0 [facility] plasma triglyceride measurement (mass/volume)2020-03-14 02:53:00* Test Item Value Reference Range Interpretation Comments Triglycerides Level (test code = 2571-8) 61 0-149 [facility]er[facility] or plasma cholesterol measurement (mass/volume)2020-03-14 02:53:00* Test Item Value Reference Range Interpretation Comments Cholesterol Level (test code = 2093-3) 172 0-199 Less than 200 mg/dL Low Rrnu230 - 239 mg/dL Borderline Fcsh881 m g/dl and greater High Risk [facility]er[facility] or plasma cholesterol in LDL measurement (mass/volume) 2020-03-14 02:53:00* Test Item Value Reference Range Interpretation Comments LDL Cholesterol (test code = 2089-1) 105 60-130 [facility]er[facility] or plasma cholesterol in HDL measurement (mass/volume)2020-03-14 02:53:00* Test Item Value Reference Range Interpretation Comments HDL Cholesterol (test code = 2085-9) 55 40-60 [facility]er[facility] or plasma total cholesterol/cholesterol in HDL mass tbhbm6968-02-99 02:53:00* Test Item Value Reference Range Interpretation Comments Cholesterol/HDL Ratio (test code = 9830-1) 3.1 3.0-3.6 [facility]erum or plasma creatine kinase measurement (enzymatic activity/volume)2020-03-14 02:53:00* Test Item Value Reference Range Interpretation Comments Creatine Kinase (test code = 2157-6) 65 29-168 [facility]erum or plasma creatine kinase MB measurement (mass/volume)2020-03-14 02:53:00* Test Item Value Reference Range Interpretation Comments Creatine Kinase MB (test code = 56886-7) 1.80 0-4.3 [facility]ervilleTroponin I measurement by highly sensitive enzyme zuurybvkaqe3573-70-68 02:53:00* Test Item Value Reference Range Interpretation Comments Troponin I (test code = 39528-4) 0.021 0-0.300 [facility]ervilleCHEST SINGLE (PORTABLE)2020-03-13 17:24:00 [facility] [address] [place] [address] Patient Name: ANTELMO PAGAN MR #: [id number] : 1935 Age/Sex: 84/F Req #: [id number] Adm Physician: CHRISTIANO CUI MD Ordered by: STEVEN KC DO Report #: [id number] Location: MED/SURG Room/Bed: [facility] Procedure: [id number] DX/CHEST SINGLE (PORTABLE) Exam Date: 03/13/20 Exam Time: 164 0 REPORT STATUS: Signed Examinat ion: Single AP view of the chest. COMPARISON: 2 view chest 04/18/2018 I NDICATION: Very high blood pressure, chest pain IMPRESSION: 1. L harry and Tubes: None 2. Lungs are hyperinflated, which may reflect underlying COPD. Prominence of the perihilar interstitial markings/mild visual opacities , suggesting mild interstitial edema. No consolidation or effusion. 3. Card iomediastinal silhouette is normal. Central pulmonary venous congestion. 4. No acute bony abnormalities. Cystic degenerative changes in the right proxim al humerus. Degenerative changes in bilateral glenohumeral joints, right great er than left. Signed by: Dr. Jose Enrique Fernandez M.D. on 03/13/2020 5:26 PM Dictated By: JOSE ENRIQUE FERNANDEZ MD 25 Transcribed By: EJ on 03/13/201725 COPY TO: STEVEN HOWARD DO Urine color wcvtkobxhgssf6656-69-68 16:20:00* Test Item Value Reference Range Interpretation Comments Urine Color (test code = 5778-6) YELLOW YELLOW [facility]ervilleUrine xhbgjsm9623-45-91 16:20:00* Test Item Value Reference Range Interpretation Comments Urine Clarity (test code = 55953-5) CLEAR CLEAR [facility] Hospitalpecific gravity of Urine by Test strip 2020-03-13 16:20:00* Test Item Value Reference Range Interpretation Comments Urine Specific Weiner (test code = 5811-5) 1.020 1.010-1.02 5 [facility]ervilleUrine pH measurement by automated test glkyy9401-25-92 16:20:00* Test Item Value Reference Range Interpretation Comments Urine pH (test code = 27663-9) 6 5-7 [facility]ervilleUrine leukocyte esterase detection by fqummjps1027-74-12 16:20:00* Test Item Value Reference Range Interpretation Comments Urine Leukocyte Esterase (test code = 5799-2) NEGATIVE NEGATIVE [facility]ervilleUrine nitrite eaxcfyvkk0505-44-17 16:20:00* Test Item Value Reference Range Interpretation Comments Urine Nitrite (test code = 57171-8) NEGATIVE NEGATIVE [facility]ervilleUrine protein measurement by test strip (mass/volume)2020-03-13 16:20:00* Test Item Value Reference Range Interpretation Comments Urine Protein (test code = 5804-0) NEGATIVE NEGATIVE [facility]ervilleUrine glucose wvyesmvth7801-58-76 16:20:00* Test Item Value Reference Range Interpretation Comments Urine Glucose (UA) (test code = 2349-9) NEGATIVE NEGATIVE [facility]ervilleUrine ketones detection by automated test azogg9845-49-64 16:20:00* Test Item Value Reference Range Interpretation Comments Urine Ketones (test code = 91716-5) TRACE NEGATIVE [facility]ervilleUrine urobilinogen measurement by test strip (mass/volume)2020-03-13 16:20:00* Test Item Value Reference Range Interpretation Comments Urine Urobilinogen (test code = 55466-6) 0.2 0.2-1 [facility]ervilleUrine total bilirubin measurement (mass/volume)2020-03-13 16:20:00* Test Item Value Reference Range Interpretation Comments Urine Bilirubin (test code = 1977-6) NEGATIVE NEGATIVE [facility]ervilleUrine erythrocytes kgrievsaz8622-82-75 16:20:00* Test Item Value Reference Range Interpretation Comments Urine Blood (test code = 95707-1) NEGATIVE NEGATIVE [facility]ervilleAutomated urine sediment leukocyte count by microscopy (number/high power field)2020-03-13 16:20:00* Test Item Value Reference Range Interpretation Comments Urine WBC (test code = 5821-4) 0-5 0-5 [facility]ervilleErythrocytes detection in urine sediment by light hrmodfjxyv5115-53-50 16:20:00* Test Item Value Reference Range Interpretation Comments Urine RBC (test code = 53788-5) 0-5 0-5 [facility]ervilleBacteria detection in urine sediment by light scnudgqbhx1526-88-94 16:20:00* Test Item Value Reference Range Interpretation Comments Urine Bacteria (test code = 22079-7) RARE NONE [facility]ugervilleEpithelial cells detection in urine sediment by light hsbaklsirl2456-43-44 16:20:00* Test Item Value Reference Range Interpretation Comments Urine Epithelial Cells (test code = 67570-3) RARE NONE [facility]er[facility] or plasma total bilirubin measurement (mass/volume)2020-03-13 16:20:00* Test Item Value Reference Range Interpretation Comments Total Bilirubin (test code = 1975-2) 0.6 0.2-1.2 [facility]ugervilleFluoroscopic procedure less than one hour lgseazdz9982-63-64 16:20:00* Test Item Value Reference Range Interpretation Comments Aspartate Amino Transf (AST/SGOT) (test code = Aspartate Amino Transf (AST/SGOT)) 21 5-34 [facility]er[facility] or plasma alanine aminotransferase measurement (enzymatic activity/volume)2020-03-13 16:20:00* Test Item Value Reference Range Interpretation Comments Alanine Aminotransferase (ALT/SGPT) (test code = 1742-6) 27 0-55 [facility]er[facility] or plasma protein measurement (mass/volume)2020-03-13 16:20:00* Test Item Value Reference Range Interpretation Comments Total Protein (test code = 2885-2) 7.5 6.5-8.1 [facility]er[facility] or plasma albumin measurement (mass/volume)2020-03-13 16:20:00* Test Item Value Reference Range Interpretation Comments Albumin (test code = 1751-7) 4.1 3.5-5.0 [facility]ervillePlasma globulin measurement (mass/volume) 2020-03-13 16:20:00* Test Item Value Reference Range Interpretation Comments Globulin (test code = 57691-1) 3.4 2.3-3.5 [facility]er[facility] or plasma albumin/globulin mass jznvg4085-26-46 16:20:00* Test Item Value Reference Range Interpretation Comments Albumin/Globulin Ratio (test code = 1759-0) 1.2 0.8-2.0 [facility]er[facility] plasma alkaline phosphatase measurement (enzymatic activity/volume)2020-03-13 16:20:00* Test Item Value Reference Range Interpretation Comments Alkaline Phosphatase (test code = 6768-6) 93 40-150 [facility]ervilleCARDIAC FXOWJJJ6101-42-99 21:39:00<0.02[facility]CARD[facility]AC TMHENEE6821-53-71 21:39:30634DE SoutheastCHEM TPGCP5266-28-00 21:39:00* Test Item Value Reference Range Interpretation Comments A/G Ratio (test code = A/G Ratio) 1.1 1 0.7-1.6 [facility]CHEM ORGJA4362-85-19 21:39:003.0[facility]2018-11-05 21:39:00* Test Item Value Reference Range Interpretation Comments B/C Ratio (test code = B/C Ratio) 29 1 6-25 [facility] AQCHI2613-97-34 21:39:0010.[facility]2018-11-05 21:39:0056[facility]2018-11-05 [facility]:39[facility] 2018-08-25 21:39:0081[facility]2018-11-05 21:39:0017[facility]2018-11-05 21:39:47318MM[facility]2018-11-05 21:39:000.96[facility]2018-11-05 21:39:003.6[facility]2018-11-05 21:39:58989GIHe[facility]2018-11-05 21:39:008.9[facility] 2018-08-25 21:39:60232UCHe[facility]2018-11-05 21:39:0028[facility]2018-11-05 21:39:003.3MC[facility]2018-11-05 21:39:0027[facility]2018-11-05 21:39:006.3MC[facility]2018-11-05 21:39:0028[facility] HospitalKnnojgumzMIXNLRUXPP0618-17-23 21:39:00* Test Item Value Reference Range Interpretation Comments PTT (test code = PTT) 30.8 s 22.9-35.8 [facility] HospitalWjhhgpkluSBYWKDOOJC6296-54-91 21:39:0014.2MLahey Hospital & Medical CenterBrggpohrmXQZNBTJJHY5466-61-31 21:39:0033.7[facility] HospitalDhdvvpgiwKDXFHQKOEE8530-68-13 21:39:008.9[facility] HospitalHEMATOLOGY 2018-08-25 21:39:16399OE EgsrbhsnuHSAZEQAOMT3512-67-63 21:39:00* Test Item Value Reference Range Interpretation Comments MCH (test code = MCH) 27.5 pg 27.0-31.0 [facility] HospitalYxphmplxmSVNKAMFEAS7933-39-71 21:39:0081.4 LdieelhgyILJPDENIJW1172-97-12 21:39:0039.3MLahey Hospital & Medical CenterLwnplpuaaFZAPBVILQM3315-35-33 21:39:0013.2M SoutheastHEMATOLOGY 2018-08-25 21:39:004.82 RntilumbeODACWXZIXE5256-45-65 21:39:009.5[facility] YAFEAUWYVF6776-58-69 21:39:00* Test Item Value Reference Range Interpretation Comments PT (test code = PT) 14.0 s 12.0-14.7 [facility] CenterKmkyqsbrtCSWFUZHUVT5628-76-93 21:39:00* Test Item Value Reference Range Interpretation Comments INR (test code = INR) 1.08 1 0.85-1.17 [facility] HospitalUhdrzhrvuQFXALKDCUZ6680-86-26 21:39:007.4[facility] HospitalUaypyosylPETWOBPYUR3481-86-84 21:39:001.3MLahey Hospital & Medical CenterCzbeufqwgGOJDJUYWNL1848-16-27 21:39:000.6M SoutheastHEMATOLOGY 2018-08-25 21:39:000.1MLahey Hospital & Medical CenterYmenjyfdlPWOIKFOPDH9678-92-41 21:39:000.1[facility]2018-11-05 21:39:000.8[facility] HospitalPtbddikbqHRESEZOIWR4854-25-51 21:39:006.3MLahey Hospital & Medical CenterLbiewwoxmTRAVFVDJMI6606-09-71 21:39:0014.2MLahey [facility] & Medical CenterJgnpbulktQQEKXSQYAR7271-23-31 21:39:0077.8[facility] HospitalPjanqlvllBNGDAXNZSN4824-55-44 21:39:[address]2018-06-29 12:40:00 [place] [address] Patient Name: ANTELMO PAGAN MR #: [id number] : 1935 Age/Sex: 82/F Req #: [id number] Adm Physician: Ordered by: JIM CONN MD Report #: [id number] Location: OR Room/Bed: Procedure: [id number] DX/CHEST 2 VIEWS Exam D ate: 04/18/18 Exam Time: 1200 REPORT STATUS: Si gned PROCEDURE: X-RAY CHEST, TWO VIEWS COMPARISON: None. INDICATIONS: PRE OPERATIVE CHEST X-RAY FOR LEFT BREAST MASTECTOMY FINDINGS: The velasquez ngs are hyperinflated. The patient is rotated to the right. No focal airspace consolidation, pleural effusion, or pneumothorax. Tortuosity and atheroscler otic calcification of the thoracic aorta with an otherwise normal heart size. No pulmonary edema. No acute osseous abnormalities. 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 Surgical clips project over the upper abdomen on the lateral radiograph, likely relate d to cholecystectomy. CONCLUSION: No acute cardiopulmonary abnorma lity. Pulmonary hyperinflation suggestive of COPD. Dictated by: Jean Paul Olmedo M.D. on 04/18/2018 at 12:40 Electronically approved by: Josh brown M.D. on 04/18/2018 at 12:40 Dictated By: JOSH OLMEDO MD El ectronically Signed By: JOSH OLMEDO MD on 04/18/18 1240 Transcribed By: MILO on 04/18/18 1240 COPY TO: JIM CONN MD Sodium Level 2018-04-18 12:28:00* Test Item Value Reference Range Interpretation Comments Sodium Level (test code = 2951-2) 139 136-145 [facility]ugervillePotassium Jchem9845-04-68 12:28:00* Test Item Value Reference Range Interpretation Comments Potassium Level (test code = 2823-3) 4.3 3.5-5.1 [facility]ugervilleChloride Pesjn8390-22-09 12:28:00* Test Item Value Reference Range Interpretation Comments Chloride Level (test code = 2075-0) 104 98-107 [facility] PflugervilleCarbon Dioxide Ttafq3877-69-87 12:28:00* Test Item Value Reference Range Interpretation Comments Carbon Dioxide Level (test code = 2028-9) 25 22-29 [facility] PflugervilleAnion Dhb8522-87-69 12:28:00* Test Item Value Reference Range Interpretation Comments Anion Gap (test code = 67837-5) 14.3 8-16 [facility] PflugervilleBlood Urea Wedntnlp3603-33-59 12:28:00* Test Item Value Reference Range Interpretation Comments Blood Urea Nitrogen (test code = 3094-0) 26 7-26 [facility]Creatinine2018-06-29 12:28:00* Test Item Value Reference Range Interpretation Comments Creatinine (test code = 2160-0) 0.78 0.57-1.11 [facility]BUN/Creatinine Xeuan7856-10-77 12:28:00* Test Item Value Reference Range Interpretation Comments BUN/Creatinine Ratio (test code = 3097-3) 33 6-25 H [facility]ervilleEstimat Glomerular Filtration Rate 2018-04-18 12:28:00* Test Item Value Reference Range Interpretation Comments Estimat Glomerular Filtration Rate (test code = 44485-9) 60- >60 Ranges were taken from the National Kidney Disease Education Program and the [facility] literature.Reference ranges:60 or greater: Bifkvv31-92 ( for 3 consecutive months): Chronic kidney disease 15 or less: Kidney failureBaylor Scott & [facility] – PflugervilleGlucose Bqfxn6549-47-82 12:28:00* Test Item Value Reference Range Interpretation Comments Glucose Level (test code = IFU6951) 119 74-118 H [facility]ervilleCalcium Bunji4179-88-30 12:28:00* Test Item Value Reference Range Interpretation Comments Calcium Level (test code = 14392-5) 10.1 8.4-10.2 [facility]ervilleWhite Blood Wyujw9776-69-37 12:14:00* Test Item Value Reference Range Interpretation Comments White Blood Count (test code = 6690-2) 9.20 4.8-10.8 [facility]ervilleRed Blood Amkip7692-06-58 12:14:00* Test Item Value Reference Range Interpretation Comments Red Blood Count (test code = 789-8) 4.94 3.6-5.1 [facility]Hemoglobin2018-06-29 12:14:00* Test Item Value Reference Range Interpretation Comments Hemoglobin (test code = 58918-5) 13.7 12.0-16.0 [facility]Hematocrit2018-06-29 12:14:00* Test Item Value Reference Range Interpretation Comments Hematocrit (test code = 4544-3) 41.4 34.2-44.1 [facility]ervilleMean Corpuscular Xiabli0637-96-85 12:14:00* Test Item Value Reference Range Interpretation Comments Mean Corpuscular Volume (test code = 787-2) 83.8 81-99 [facility]Mean Corpuscular Hqbqugbgej3410-16-66 12:14:00* Test Item Value Reference Range Interpretation Comments Mean Corpuscular Hemoglobin (test code = 785-6) 27.7 28-32 L [facility] Fallsan Corpuscular Hemoglobin Concent 2018-04-18 12:14:00* Test Item Value Reference Range Interpretation Comments Mean Corpuscular Hemoglobin Concent (test code = 786-4) 33.1 31-35 [facility]Red Cell Distribution Ubjnr2591-48-05 12:14:00* Test Item Value Reference Range Interpretation Comments Red Cell Distribution Width (test code = 83692-3) 13.3 11.7 -14.4 [facility]Platelet Aapkf8785-19-77 12:14:00* Test Item Value Reference Range Interpretation Comments Platelet Count (test code = 777-3) 242 140-360 [facility]ervilleNeutrophils (%) (Auto)2018-04-18 12:14:00 * Test Item Value Reference Range Interpretation Comments Neutrophils (%) (Auto) (test code = 56780-9) 68.7 38.7-80.0 [facility]Lymphocytes (%) (Auto)2018-04-18 12:14:00 * Test Item Value Reference Range Interpretation Comments Lymphocytes (%) (Auto) (test code = 736-9) 22.0 18.0-39.1 [facility]Monocytes (%) (Auto)2018-04-18 12:14:00* Test Item Value Reference Range Interpretation Comments Monocytes (%) (Auto) (test code = 5905-5) 6.1 4.4-11.3 [facility]Eosinophils (%) (Auto)2018-04-18 12:14:00 * Test Item Value Reference Range Interpretation Comments Eosinophils (%) (Auto) (test code = 713-8) 2.0 0.0-6.0 [facility]Basophils (%) (Auto)2018-04-18 12:14:00* Test Item Value Reference Range Interpretation Comments Basophils (%) (Auto) (test code = 706-2) 0.8 0.0-1.0 [facility]ervilleIM GRANULOCYTES %2018-04-18 12:14:00* Test Item Value Reference Range Interpretation Comments IM GRANULOCYTES % (test code = IM GRANULOCYTES %) 0.4 0.0- 1.0 [facility]Neutrophils # (Auto)2018-04-18 12:14:00* Test Item Value Reference Range Interpretation Comments Neutrophils # (Auto) (test code = 751-8) 6.3 2.1-6.9 [facility]Lymphocytes # (Auto)2018-04-18 12:14:00* Test Item Value Reference Range Interpretation Comments Lymphocytes # (Auto) (test code = 24326-9) 2.0 1.0-3.2 [facility]Monocytes # (Auto)2018-04-18 12:14:00* Test Item Value Reference Range Interpretation Comments Monocytes # (Auto) (test code = 742-7) 0.6 0.2-0.8 [facility]Eosinophils # (Auto)2018-04-18 12:14:00* Test Item Value Reference Range Interpretation Comments Eosinophils # (Auto) (test code = 711-2) 0.2 0.0-0.4 [facility]Basophils # (Auto)2018-04-18 12:14:00* Test Item Value Reference Range Interpretation Comments Basophils # (Auto) (test code = 704-7) 0.1 0.0-0.1 [facility]ervilleAbsolute Immature Granulocyte (auto 2018-04-18 12:14:00* Test Item Value Reference Range Interpretation Comments Absolute Immature Granulocyte (auto (ame t code = Absolute Immature Granulocyte (auto) 0.04 0-0.1 [facility] 14:35:006.4 Medical SweoyHcisdmhpw8359-16-65 14:35:82296FM Medical CrxwsWczpjzrdi7125-40-15 14:35:55949AV Medical TzipuMthhrlvwv6206-63-78 14:35:0052 Medical Group Derbzivck0404-26-99 14:35:29844RU Medical LtgnxUignouyzv0039-16-59 14:35:48790 [facility] Medical FzmveHjecipahz8871-40-18 14:35:004.3 [facility] Medical Group Xrlskzitv0694-95-74 14:35:000.8 Medical PsgpnCurafjbul7830-24-70 14:35:0022 Medical NpwjlRfzvbfnnk8844-69-61 14:35:00* Test Item Value Reference Range Interpretation Comments BUN/CREAT (test code = BUN/CREAT) 28 1 6-25 Medical BmqdoIxvisoycg6898-59-42 14:35:003.5 Medical GroupChemistry 2015-03-30 14:35:009.4 Medical IxiebZkxfmtrbd5666-60-56 14:35:0027 Medical ChewvDhahzmkjz4350-17-92 14:35:0013 Medical JcnwlYryqwcveo2992-92-19 14:35:00 91 Medical DnzzwWcjyytren7569-12-78 14:35:001.970 Medical GroupChemistry 2010-05-15 13:20:005.[facility] Medical GaxhaJcirkffuh2357-69-68 13:20:25189KP Medical QlqitTdqdxofgt2199-86-39 13:20:0096 Medical BnqoyJpjaxggqo6621-33-68 13:20:00 50 Medical NhpegFofcwvdaf1623-16-17 13:20:17488NM Medical GroupChemistry 2010-05-15 13:20:001.970 Medical KvpopQfiuyvcsa5155-34-23 13:20:24734CY Medical PuipuRvzbzosod1893-53-95 13:20:005.4 Medical QeigtEvargogjt9499-47-61 13:20:0025 Medical IvymcFrqdgvmtm3354-20-62 13:20:000.9 Medical Group Kzwgtmzki2195-48-92 13:20:00* Test Item Value Reference Range Interpretation Comments BUN/CREAT (test code = BUN/CREAT) 28 1 - Medical RsagmTlccwhrqj6989-70-82 13:20:003.7 Medical GroupChemistry 2010-05-15 13:20:009.8 Medical RwfobGpbquhpin3542-92-31 13:20:0010 Medical DddclEqqdyfsou7190-88-48 13:20:0028 Medical DwrodZsphrbcop7197-44-98 13:20:00 99M Medical DkgdnViffpgxjl3199-49-50 13:20:005.7 Medical GroupChemistry 2010-05-15 13:20:64678JE Medical UgvekYdcdiuqbw3834-15-67 13:20:0096 Medical ClwvbDesxcsnoy8596-13-86 13:20:0050 Medical UldjyEbcpbwyqg1360-59-03 13:20:00 141 Medical MeqbjMxldcgqrp3935-92-85 13:20:001.970 Medical GroupChemistry 2010-05-15 13:20:65925N[place] Medical ZhwmhIpgyogdco6994-87-09 13:20:005.4 Medical JfodlLjgrjnefz1542-53-68 13:20:0025 Medical BgoodFearcwnvl7432-57-38 13:20:00 0.9 Medical WlmwaKvziubyps3242-26-26 13:20:00* Test Item Value Reference Range Interpretation Comments BUN/CREAT (test code = BUN/CREAT) 28 04-14 Medical PyewiJzevmokfx3996-17-08 13:20:003.7 Medical GroupChemistry 2010-05-15 13:20:009.8 Medical XbsvvDhhiqjjfg5878-23-24 13:20:0010 Medical PezlfRprddyswp7888-52-65 13:20:0028 Medical AezanUovhoktjq0346-35-77 13:20:00 99M Medical NjrpfLflpmdnrfc2923-28-35 13:20:0014.[facility] Medical GroupHematology 2010-05-15 13:20:0042.[facility] Medical WexgxMurydsapvr1109-41-82 13:20:24547 /[facility] Medical ExvnjIwpmrsfioh4924-42-52 13:20:0014.[facility] Medical GroupHematology 2010-05-15 13:20:0042.[facility] Medical YvlfmMexhumlzpi7383-29-79 13:20:38297 [facility] Medical PagraMchztdhdfs1507-31-83 13:20:[facility] GroupUrinalysis 2010-05-15 13:20:00[facility] HjispAkvyxtglf6679-10-12 09:16:005.8 [facility] Medical GrbndYrhnbekeg9871-14-90 13:01:0019 Medical GroupChemistry 2008-11-11 13:01:000.79 Medical BxfdbWtwjugtro3432-21-81 13:01:00NOT APPLICABLE (calc) Medical IvyizFbqtbnson0317-43-59 13:01:87570SZ Medical Group Prlvifzwh0067-66-28 13:01:004.4 Medical AhgrrYtilcxsee8540-17-74 13:01:009.8 Medical XeivbLynpicbim0916-43-09 13:01:004.[facility] Medical AqazxQjzbhcgbi6615-25-63 13:01:0072 Medical PlokbXobrxsfac4009-04-26 13:01:0017 Medical Group Mezyxlhbm9159-99-15 13:01:0021 Medical Group
--- NOTE | 2020-03-21 01:55 | Emergency Department Note ---
History of Present Illnes History of Present Illness Chief Complaint: Hypertension History of Present Illness This is a 84 year old female presents to the ED for sudden onset of R arm tingling and head pain at 0030 today. Denies CP or SOB. Took BP at home and noted that it was elevated Historian: Patient Arrival Mode: Car Onset (how long ago): second(s) (prior to arrival) Location: head and RUE Radiation: extremity Severity: mild Onset quality: sudden Timing of current episode: constant Progression: resolved Chronicity: new Relieving factors: none Exacerbating factors: none Associated symptoms: denies other symptoms Treatments prior to arrival: none Past Medical/Family History Physician Review I have reviewed the patient's past medical and family history. Any updates have been documented here. Past Medical History Recent Fever: No Clinical Suspicion of Infectio: No New/Unexplained Change in Ment: No Past Medical History: Hypertension, Diabetes, Chronic Back Pain Other Medical History: hypertension, pre- diabetic, back pain GLAUCOMA Past Surgical History: Cholecysctectomy, Knee Replacement, Cataract Removal Other Surgery: cataract and galucoma surgery, knee replacement and 2 foot surgery (bunions) NIPPLE BIOPSY lumbar spinal injections, mastectomy Social History Smoking Cessation: Never Smoker Alcohol Use: None Any Illegal Drug Use: No Other Last Tetanus: UNKNOWN Review of Systems Review of Systems Constitutional: no symptoms EENTM: no symptoms Cardiovascular: no symptoms Respiratory: no symptoms Gastrointestinal: no symptoms Genitourinary: no symptoms Musculoskeletal: no symptoms Neurological: headache, tingling Psychological: no symptoms Endocrine: no symptoms Hematological/Lymphatic: no symptoms Review of other systems All other systems reviewed and negative. Physical Exam Related Data Allergies: Uncoded Allergies: DECONGESTANTS (Allergy, Intermediate, HEART" RACES", 04/18/18) Triage Vital Signs Vital Signs Date Time Temp Pulse Resp B/P (MAP) Pulse Ox O2 Delivery O2 Flow Rate FiO2 03/21/20 01:52 98.3 76 17 170/93 97 Vital signs reviewed: Yes Physical Exam CONSTITUTIONAL Constitutional: well-developed, well-nourished HENT HENT: normocephalic, atraumatic, oropharynx clear/moist, nose normal HENT L/R: left ext ear normal, right ext ear normal EYES Eyes: PERRL, conjunctivae normal NECK Neck: ROM normal PULMONARY Pulmonary: effort normal, breath sounds normal CARDIOVASCULAR Cardiovascular: regular rhythm, heart sounds normal, capillary refill normal, normal rate GASTROINTESTINAL Abdominal: soft, nontender, bowel sounds normal GENITOURINARY Genitourinary: exam deferred SKIN Skin: warm, dry MUSCULOSKELETAL Musculoskeletal: ROM normal NEUROLOGICAL Neurological: alert, oriented x 3, no gross motor or sensory deficits PSYCHOLOGICAL Psychological: mood/affect normal, judgement normal Results Laboratory Lab results reviewed: Yes Laboratory comments CMP : Ca 10.4 CBC : wnl Cardiac Enzymes : wnl Imaging Imaging results reviewed: Yes Impressions [place] [address] Patient Name: ANTELMO PAGAN MR #: [id number] : 1935 Age/Sex: 84/F Req #: [id number] Adm Physician: Ordered by: ROM CLARK DO Report #: [id number] Location: ER Room/Bed: Procedure: CT/CT BRAIN WO Exam Date: 03/21/20 Exam Time: 0245 REPORT STATUS: Signed EXAMINATION: Head CT without contrast. HISTORY:Elevated blood pressure. COMPARISON:None. TECHNIQUE: Multidetector axial images were obtained from the foramen magnum to the vertex without contrast. The images were reconstructed using brain and bone algorithms. Thin section brain images were reformatted into coronal and sagittal planes. Dose modulation, iterative reconstruction, and/or weight based adjustment of the mA/kV was utilized to reduce the radiation dose to as low as reasonably achievable. Intravenous contrast: None IMAGE QUALITY: Acceptable. FINDINGS: Skull/scalp: No lytic or blastic. lesions. No surgical changes. Parenchyma: Nonspecific few, scattered supratentorial white matter hypodensity are likely related to small vessel ischemic changes. No acute hemorrhage, mass or acute major vascular territorial infarct. Arteries: No density suggestive of thrombosis. Dural sinuses: No abnormal density suggestive of thrombosis. Ventricles: No hydrocephalus or displacement. Extra-axial spaces: No abnormal density. Brain volume: Normal for age. Craniocervical junction: No mass, Chiari malformation, or basilar invagination. Sella: No mass. Paranasal/mastoid sinuses: Imaged portions unremarkable. Incidental pneumatization of right petrous apex. IMPRESSION: No acute intracranial abnormality. Signed by: Dr. Yohana Barlow M.D. on 03/21/2020 3:18 AM Dictated By: YOHANA BARLOW MD 7 Transcribed By: EJ on 03/21/20317 COPY TO: ROM CLARK DO~ [place] [address] Patient Name: ANTELMO PAGAN MR #: [id number] : 1935 Age/Sex: 84/F Req #: [id number] Adm Physician: Ordered by: ROM CLARK DO Report #: [id number] Location: ER Room/Bed: Procedure: [id number] DX/CHEST 2 VIEWS Exam Date: 03/21/20 Exam Time: 0255 REPORT STATUS: Signed EXAMINATION: CHEST 2 VIEWS INDICATION: Elevated blood pressure COMPARISON: Chest x-ray 04/18/2018 FINDINGS: TUBES and LINES: None. LUNGS: Hyperinflated lungs with lucencies and prominent interstitium in the upper lungs. Prominent pulmonary vasculature. Mild central bronchial wall thickening. Flattened hemidiaphragms. PLEURA: No pleural effusion or pneumothorax. HEART AND MEDIASTINUM: The cardiomediastinal silhouette is unremarkable. BONES AND SOFT TISSUES: No acute osseous lesion. Soft tissues are unremarkable. Degenerative changes. UPPER ABDOMEN: No free air under the diaphragm. IMPRESSION: Findings suggestive of pulmonary emphysema and bronchitis. Pulmonary vascular congestion. Signed by: Carter Mortensen DO on 03/21/2020 4:46 AM Dictated By: CARTER MORTENSEN DO 5 Transcribed By: EJ on 03/21/20445 COPY TO: ROM CLARK DO~ Procedures 12 Lead ECG Interpretation Requirements Engineer: Interpreted by ED physician Date: Mar 21, 2020 Time: 02:05 Prior WAITER/WAITRESS SECOND CLASS tracings: reviewed Rhythm: sinus rhythm Rate: normal Conduction: right bundle branch block ST segments normal: Yes T waves normal: Yes Other findings: LVH with strain Pacin% capture Clinical Impression: non-specific ECG Assessment & Plan Assessment & Plan Final Impression: (1) OTHER SECONDARY HYPERTENSION (2) HYPERCALCEMIA Assessment & Plan CT head, CBC, cardiac enzymes, and EKG reviewed with patient. blood pressure markedly improved. Plan to discharge to home for self care Depart Disposition: HOME, SELF-CARE Last Vital Signs Date Time Temp Pulse Resp B/P (MAP) Pulse Ox O2 Delivery O2 Flow Rate FiO2 03/21/20 05:11 73 20 99 03/21/20 03:33 170/84 03/21/20 01:52 98.3 Home Meds Active Scripts Atorvastatin Calcium* (LIPITOR*) 10 Mg Tablet, 10 MG PO HS for 30 Days, TAB Prov:CHRISTIANO CUI MD 03/15/20 Nifedipine (NIFEDIPINE ER) 30 Mg Tab.er.24, 30 MG PO Q12HR for 30 Days Prov:CHRISTIANO CUI MD 03/15/20 Reported Medications Amlodipine Besylate (AMLODIPINE BESYLATE) 5 Mg Tablet, 5 MG PO DAILY, #30 TAB 03/15/20 Tramadol Hcl (ULTRAM) 50 Mg Tablet, 50 MG PO BID PRN for PAIN, TAB 04/18/18 [Berberine] No Conflict Check, 1 CAP PO DAILY 04/18/18 [Natakinase] No Conflict Check, 1 CAP PO DAILY 04/18/18 Dorzolamide Hcl/Timolol Maleat (DORZOLAMIDE-TIMOLOL EYE DROPS) 10 Ml Drops, 10 ML OP BID, BOTTLE 04/18/18 Multivitamin (MULTIVITAMINS) 1 Each Capsule, 1 TAB PO BID 04/18/18 Atenolol (ATENOLOL) 50 Mg Tablet, 25 MG PO DAILY 04/18/18 ROM CLARK 1, 2020 01:54
[2020-03-21] MEDS ORDERED: ASPIRIN 81 MG CHEW TAB PO ONE (02:00)
[2020-03-21 02:48] LABS: BASOPHILS # (AUTO) 0.1 (0.0-0.1); BASOPHILS % 0.8 % (0.0-1.0); EOSINOPHILS # (AUTO) 0.2 (0.0-0.4); HEMATOCRIT 43.9 % (34.2-44.1); HEMOGLOBIN 14.1 g/dL (12.0-16.0); LYMPHOCYTES # (AUTO) 1.9 (1.0-3.2); MEAN CORPUSCULAR HEMOGLOBIN 26.8 pg (28-32); MEAN CORPUSCULAR HGB CONC 32.1 g/dL (31-35); MEAN CORPUSCULAR VOLUME 83.3 fL (81-99); MONOCYTES # (AUTO) 0.5 (0.2-0.8); MONOCYTES % 5.9 % (4.4-11.3); NEUTROPHILS # (AUTO) 5.9 (2.1-6.9); PLATELET COUNT 247 x10e3/uL (140-360); RED BLOOD COUNT 5.27 x10e6/uL (3.6-5.1); RED CELL DISTRIBUTION WIDTH 13.9 % (11.7-14.4)
[2020-03-21 03:06] LABS: ALANINE AMINOTRANSFERASE 23 IU/L (0-55); ALBUMIN 4.1 g/dL (3.5-5.0); ALBUMIN/GLOBULIN RATIO 1.3 (0.8-2.0); ALKALINE PHOSPHATASE 84 IU/L (40-150); ANION GAP 14.9 mmol/L (8-16); BLOOD UREA NITROGEN 24 mg/dL (7-26); BUN/CREATININE RATIO 31 (6-25); CALCIUM 10.4 mg/dL (8.4-10.2); CARBON DIOXIDE 23 mmol/L (22-29); CHLORIDE 105 mmol/L (98-107); CREATINE KINASE 65 IU/L (29-168); CREATININE, SERUM 0.77 mg/dL (0.57-1.11); EST GLOMERULAR FILTRATION RATE > 60 ML/MIN (60-); GLUCOSE 133 mg/dL (74-118); POTASSIUM 3.9 mmol/L (3.5-5.1); SODIUM 139 mmol/L (136-145)
--- NOTE | 2020-03-21 03:22 | Diagnostic Imaging Report ---
EXAMINATION: Head CT without contrast. HISTORY:Elevated blood pressure. COMPARISON:None. TECHNIQUE: Multidetector axial images were obtained from the foramen magnum to the vertex without contrast. The images were reconstructed using brain and bone algorithms. Thin section brain images were reformatted into coronal and sagittal planes. Dose modulation, iterative reconstruction, and/or weight based adjustment of the mA/kV was utilized to reduce the radiation dose to as low as reasonably achievable. Intravenous contrast: None IMAGE QUALITY: Acceptable. FINDINGS: Skull/scalp: No lytic or blastic. lesions. No surgical changes. Parenchyma: Nonspecific few, scattered supratentorial white matter hypodensity are likely related to small vessel ischemic changes. No acute hemorrhage, mass or acute major vascular territorial infarct. Arteries: No density suggestive of thrombosis. Dural sinuses: No abnormal density suggestive of thrombosis. Ventricles: No hydrocephalus or displacement. Extra-axial spaces: No abnormal density. Brain volume: Normal for age. Craniocervical junction: No mass, Chiari malformation, or basilar invagination. Sella: No mass. Paranasal/mastoid sinuses: Imaged portions unremarkable. Incidental pneumatization of right petrous apex. IMPRESSION: No acute intracranial abnormality. Signed by: Dr. Yohana Barlow M.D. on 03/21/2020 3:18 AM
[2020-03-21 03:48] LABS: BILIRUBIN,URINE NEGATIVE (NEGATIVE); CLARITY,URINE CLEAR (CLEAR); COLOR,URINE YELLOW (YELLOW); KETONES,URINE NEGATIVE (NEGATIVE); LEUKOCYTE ESTERASE ,URINE NEGATIVE (NEGATIVE); NITRITE,URINE NEGATIVE (NEGATIVE); PROTEIN,URINE DIPSTICK NEGATIVE (NEGATIVE); URINE UROBILINOGEN 0.2 mg/dL (0.2 - 1)
[2020-03-21 03:54] LABS: BACTERIA,URINE FEW /HPF; EPITHELIAL CELLS,URINE FEW /LPF; RBC,URINE 0-5 /HPF (0-5); TRANSITIONAL EPI CELLS,URINE FEW; WBC,URINE (MAN) 0-5 /HPF (0-5)
--- NOTE | 2020-03-21 04:50 | Diagnostic Imaging Report ---
EXAMINATION: CHEST 2 VIEWS INDICATION: Elevated blood pressure COMPARISON: Chest x-ray 04/18/2018 FINDINGS: TUBES and LINES: None. LUNGS: Hyperinflated lungs with lucencies and prominent interstitium in the upper lungs. Prominent pulmonary vasculature. Mild central bronchial wall thickening. Flattened hemidiaphragms. PLEURA: No pleural effusion or pneumothorax. HEART AND MEDIASTINUM: The cardiomediastinal silhouette is unremarkable. BONES AND SOFT TISSUES: No acute osseous lesion. Soft tissues are unremarkable. Degenerative changes. UPPER ABDOMEN: No free air under the diaphragm. IMPRESSION: Findings suggestive of pulmonary emphysema and bronchitis. Pulmonary vascular congestion. Signed by: Carter Mortensen DO on 03/21/2020 4:46 AM
[2020-03-21 05:11] VITALS: BP 153/70
== END 2020-03-21 05:15 | disposition home or self-care (01) ==
LOC: ER 01:50
DX: I15.9 Secondary hypertension, unspecified (principal); E83.52 Hypercalcemia
CPT/HCPCS: 36415; 70450; 71046; 80053; 81001; 82550; 82553; 83880; 84484; 85025; 93005; 99284; J7030

== ENCOUNTER 2021-07-25 13:10 | Emergency (ER) | payer MEDICARE, OTHER ==
[~2021-07-25] VITALS: Ht 172.7 cm; Wt 72.6 kg
[2021-07-25] MEDS ORDERED: SODIUM CHLORIDE 0.9% 1000ML 1,000 ML IV STA (13:34)
[2021-07-25 13:54] LABS: BASOPHILS # (AUTO) 0.1 (0.0-0.1); BASOPHILS % 0.6 % (0.0-1.0); EOSINOPHILS # (AUTO) 0.1 (0.0-0.4); EOSINOPHILS % 1.1 % (0.0-6.0); HEMATOCRIT 42.6 % (34.2-44.1); HEMOGLOBIN 13.5 g/dL (12.0-16.0); LYMPHOCYTES # (AUTO) 1.8 (1.0-3.2); LYMPHOCYTES % 19.6 % (18.0-39.1); MEAN CORPUSCULAR HEMOGLOBIN 26.1 pg (28-32); MEAN CORPUSCULAR HGB CONC 31.7 g/dL (31-35); MEAN CORPUSCULAR VOLUME 82.4 fL (81-99); MONOCYTES # (AUTO) 0.4 (0.2-0.8); MONOCYTES % 4.7 % (4.4-11.3); NEUTROPHILS # (AUTO) 6.6 (2.1-6.9); NEUTROPHILS % 73.8 % (38.7-80.0); PLATELET COUNT 219 x10e3/uL (140-360); RED BLOOD COUNT 5.17 x10e6/uL (3.6-5.1); RED CELL DISTRIBUTION WIDTH 14.9 % (11.7-14.4)
[2021-07-25 14:04] LABS: INR 0.95; PROTHROMBIN TIME 12.9 seconds (11.9-14.5)
[2021-07-25 14:05] LABS: PARTIAL THROMBOPLASTIN TIME 30.9 seconds (23.8-35.5)
[2021-07-25 14:12] LABS: ALBUMIN 3.8 g/dL (3.5-5.0); ALBUMIN/GLOBULIN RATIO 1.2 (0.8-2.0); CALCIUM 9.5 mg/dL (8.4-10.2); CREATININE, SERUM 0.74 mg/dL (0.57-1.11)
[2021-07-25 14:18] LABS: CREATINE KINASE MB 2.3 ng/mL (0-5.0)
[2021-07-25 14:37] LABS: CLARITY,URINE CLEAR (CLEAR); COLOR,URINE YELLOW (YELLOW); KETONES,URINE NEGATIVE (NEGATIVE); LEUKOCYTE ESTERASE ,URINE NEGATIVE (NEGATIVE); NITRITE,URINE NEGATIVE (NEGATIVE); PROTEIN,URINE DIPSTICK NEGATIVE (NEGATIVE); URINE UROBILINOGEN 0.2 mg/dL (0.2 - 1)
[2021-07-25 14:39] LABS: BACTERIA,URINE RARE /HPF; EPITHELIAL CELLS,URINE FEW /LPF; RBC,URINE 0-5 /HPF (0-5); WBC,URINE (MAN) 0-5 /HPF (0-5)
== END 2021-07-25 15:30 | disposition home or self-care (01) ==
LOC: ER 13:36
DX: R51.9 Headache, unspecified (principal); I10 Essential (primary) hypertension; H92.02 Otalgia, left ear; R60.9 Edema, unspecified; R94.31 Abnormal electrocardiogram [ECG] [EKG]
CPT/HCPCS: 36415; 70450; 71045; 80053; 81001; 82550; 82553; 83735; 83880; 84484; 85025; 85610; 85730; 93005; 99284; J7030

== ENCOUNTER 2021-12-19 22:25 | Emergency (ER) | payer MEDICARE ==
[~2021-12-19] VITALS: Ht 172.7 cm; Wt 72.6 kg
[2021-12-20 02:46] VITALS: BP 165/66
== END 2021-12-19 23:55 | disposition home or self-care (01) ==
LOC: ER 23:31
DX: I10 Essential (primary) hypertension (principal); R51.9 Headache, unspecified; E11.9 Type 2 diabetes mellitus without complications; M54.9 Dorsalgia, unspecified; G89.29 Other chronic pain; R94.31 Abnormal electrocardiogram [ECG] [EKG]; Z85.3 Personal history of malignant neoplasm of breast